=== PATIENT | female | born 1975 | race Caucasian/White ===

== ENCOUNTER 2020-09-03 09:25 | Inpatient (IN) | payer MEDICAID ==
[2020-09-03] MEDS ORDERED: Lactated Ringers 1,000 ML IV ONE (10:15)
[2020-09-03] MEDS ORDERED: Rocuronium 50 MG/5 ML Vial ONE (10:17)
[2020-09-03] MEDS ORDERED: Glycopyrrolate 0.2 MG/ML 5 ML MDV ONE (10:17)
[2020-09-03] MEDS ORDERED: Dexamethasone 4 MG/ML SDV ONE (10:17)
[2020-09-03] MEDS ORDERED: Ondansetron 4 MG/2 ML SDV ONE (10:17)
[2020-09-03] MEDS ORDERED: Propofol 200 MG/20 ML SDV ONE (10:17)
[2020-09-03] MEDS ORDERED: Succinylcholine 200 MG/10 ML MDV ONE (10:17)
[2020-09-03] MEDS ORDERED: fentaNYL 250 MCG/5 ML SDV ONE (10:17)
[2020-09-03] MEDS ORDERED: Neostigmine Methylsulfate 1 MG/ML 5 ML Syringe ONE (10:17)
[2020-09-03] MEDS: HYDROmorphone/Normal Saline 15 MG/30 ML PCA IV PRN (10:21)
[2020-09-03] MEDS ORDERED: Meropenem 500 MG SDV ONE (10:52)
[2020-09-03] MEDS ORDERED: Magnesium Sulfate 2.5 GM in Sodium Chloride 0.9% 100 ML IV SCH (11:00)
[2020-09-03] MEDS ORDERED: Ketamine 500 MG/5 ML MDV IV SCH (11:00)
[2020-09-03] MEDS ORDERED: Naloxone 0.4 MG/ML SDV IV PRN (11:00)
[2020-09-03] MEDS ORDERED: Ketamine 50 MG in Sodium Chloride 0.9% 49.5 ML IV SCH (11:00)
[2020-09-03] MEDS ORDERED: cefOXitin 2 GM in Sodium Chloride 0.9% 50 ML IV ONE (11:30)
[2020-09-03] MEDS ORDERED: Lactated Ringers 1,000 ML ONE (12:11)
[2020-09-03] MEDS ORDERED: Dextrose 5%-Lactated Ringers 1,000 ML IV SCH (12:15)
[2020-09-03] MEDS ORDERED: Bupivacaine 0.5% 50 ML MDV ONE (12:32)
[2020-09-03] MEDS ORDERED: Lidocaine 1% with EPINEPHrine 1:100,000 50 ML MDV ONE (12:32)
--- NOTE | 2020-09-03 12:39 | CR ---
CHEST: Portable 09/03/2020 11:05 AM CLINICAL HISTORY:NG tube placement COMPARISON:None FINDINGS: NG tube has been placed. The tip is in the fundus of the stomach just beyond the GE junction. Sidehole may be above the GE junction The heart size, pulmonary vascularity and hilar structures are normal. No infiltrate effusion or pneumothorax is seen. IMPRESSION: No acute cardiopulmonary process. NG tube should be advanced
[2020-09-03] MEDS ORDERED: hydrOXYzine HCL 100 MG/2 ML SDV IM ONE (13:38)
[2020-09-03] MEDS ORDERED: Labetalol 100 MG/20 ML MDV IVPUSH PRN (14:26)
[2020-09-03] MEDS: Dextrose 5%-Lactated Ringers 1,000 ML IV SCH (14:51)
[2020-09-03] MEDS ORDERED: Calcium Gluconate 10% 1 GM/10 ML SDV IVPUSH PRN (15:00)
[2020-09-03] MEDS ORDERED: diphenhydrAMINE 50 MG/ML SDV IVPUSH PRN (15:00)
[2020-09-03] MEDS ORDERED: hydrOXYzine HCL 100 MG/2 ML SDV IM PRN (15:00)
[2020-09-03] MEDS ORDERED: Ondansetron 4 MG/2 ML SDV IVPUSH PRN (15:00)
[2020-09-03] MEDS ORDERED: Pantoprazole 40 MG Vial IVPUSH SCH (15:00)
[2020-09-03] MEDS ORDERED: Acetaminophen 500 MG Tab PO PRN (15:00)
[2020-09-03] MEDS ORDERED: Metoclopramide 10 MG/2 ML SDV IVPUSH PRN (15:00)
[2020-09-03] MEDS: MVI, Adult with Vitamin K 10 ML, Thiamine 200 MG, Chromium/Copper/Mang/Selen/Zn 1 ML in... IV SCH ×4 (15:46)
[2020-09-03] MEDS: Gabapentin 400 MG Cap PO SCH ×2 (15:47→21:41)
[2020-09-03] MEDS: Acetaminophen 500 MG Tab PO SCH ×2 (15:48→23:52)
[2020-09-03] MEDS ORDERED: Scopolamine 1.5 MG Transdermal Patch TOP SCH (16:00)
[2020-09-03] MEDS: cefOXitin 2 GM in Sodium Chloride 0.9% 50 ML IV SCH ×2 (17:16→23:52)
[2020-09-03] MEDS: Celecoxib 200 MG Cap PO SCH (20:05)
[2020-09-03] MEDS: Topiramate 25 MG Tab PO SCH (20:05)
[2020-09-03] MEDS: Heparin Sodium 5,000 Units/ML Vial SUBCUT SCH (20:05)
[2020-09-03] MEDS: Amitriptyline 25 MG Tab PO SCH (20:06)
[2020-09-04] MEDS: Dextrose 5%-Lactated Ringers 1,000 ML IV SCH ×3 (00:02→23:41)
[2020-09-04] MEDS ORDERED: Iopamidol 612 MG/ML 50 ML SDV PO ONE (03:14)
[2020-09-04] MEDS: cefOXitin 2 GM in Sodium Chloride 0.9% 50 ML IV SCH ×3 (05:44→17:37)
[2020-09-04] MEDS ORDERED: Ondansetron 4 MG Tab.DIS PO PRN (07:15)
--- NOTE | 2020-09-04 08:10 | PN ---
DATE OF SERVICE: 09/04/2020 SUBJECTIVE: Vanessa is postoperative day 1. Pain has been controlled with the HELICOPTER REPAIRER. She has been up ambulating. She has not used her incentive spirometer yet. She reports no other concerns and has no other questions. REVIEW OF SYSTEMS: Remainder of review of systems negative for any pertinent positives and negatives. OBJECTIVE: GENERAL: Vanessa White is a pleasant 45-year-old female, alert and orientated. VITAL SIGNS: TPR at 0721 is 98, 91, 16. Blood pressure 104/65. HEENT: Negative. NECK: Supple. HEART: Regular rate and rhythm. LUNGS: Clear. ABDOMEN: Dressings dry and intact. Abdominal binder is on. EXTREMITIES: Without peripheral edema. ASSESSMENT: Exploratory laparotomy with lysis of adhesions. 1. Reduction of small bowel volvulus and closure of internal hernia. 2. Small bowel resection. 3. Secondary enteroenterostomy to re-establish small bowel Chung-en-Y anatomy. 4. Small bowel strictureplasty. 5. Tube decompression distal to Chung limb, small bowel. 6. Repair of incarcerated incisional hernia. 7. Placement of Interceed mesh. POSTOPERATIVE DIAGNOSES: 1. Small bowel obstruction secondary to focal volvulus, marked decompensation and dilation of the jejunojejunostomy. 2. Focal stricture, distal biliary pancreatic limb. 3. Incarcerated incisional hernia. Date of procedure 09/03/2020. Surgeon: Ashvin Rodriguez MD. PLAN: 1. Discontinue cardiac monitoring. 2. Decrease IV to 100 mL per hour. 3. Discontinue her [place] catheter. 4. Step 2 gastric bypass diet without cereasl. 5. Zofran ODT 4 mg every 4 hours p.r.n. nausea, vomiting. 6. Order written for;. a. Incentive spirometer to use 10 times every hour while awake. b. May shower. 7. Continue use of ambulation. 8. Communication order, may have coffee if severe caffeine headache. 9. We will evaluate p.r.n. or in a.m. Kassie Clark PA-C /[id number]
[2020-09-04] MEDS: Heparin Sodium 5,000 Units/ML Vial SUBCUT SCH ×2 (08:40→19:22)
[2020-09-04] MEDS: Acetaminophen 500 MG Tab PO SCH ×3 (08:42→23:25)
[2020-09-04] MEDS: Fluticasone Propionate Nasal Spray 16 GM Bottle NASBOTH SCH (08:43)
[2020-09-04] MEDS: Celecoxib 200 MG Cap PO SCH ×2 (08:43→20:00)
[2020-09-04] MEDS: Gabapentin 400 MG Cap PO SCH ×3 (08:44→20:00)
[2020-09-04] MEDS: SCOPOLAMINE PATCH CHECK TOP SCH (08:44)
[2020-09-04] MEDS: Topiramate 25 MG Tab PO SCH ×2 (08:45→20:01)
[2020-09-04] MEDS: Pantoprazole 40 MG Tab.CR PO SCH (08:50)
--- NOTE | 2020-09-04 09:03 | CR ---
UGI Limited HISTORY: Postbariatric surgery FINDINGS: Precontrast images show some generalized small bowel distention. There are surgical suture lines in the epigastric region and left the abdomen. Patient swallowed water-soluble contrast. Upright views of the abdomen show no evidence of extravasation or obstruction. IMPRESSION: Status post abdominal surgery No extravasation or obstruction seen upper GI. There is some small bowel distention which is seen on preoperative imaging.
[2020-09-04] MEDS: HYDROmorphone/Normal Saline 15 MG/30 ML PCA IV PRN (09:05)
[2020-09-04] MEDS: Cyclobenzaprine 10 MG Tab PO PRN ×2 (11:34→23:25)
[2020-09-04] MEDS: MVI, Adult with Vitamin K 10 ML, Thiamine 200 MG, Chromium/Copper/Mang/Selen/Zn 1 ML in... IV SCH ×4 (15:30)
[2020-09-04] MEDS: Tamsulosin 0.4 MG Cap.ER PO SCH ×2 (16:18→20:00)
[2020-09-04] MEDS: Amitriptyline 25 MG Tab PO SCH (20:00)
[2020-09-05] MEDS: Acetaminophen 500 MG Tab PO SCH ×2 (08:16→16:01)
[2020-09-05] MEDS: Pantoprazole 40 MG Tab.CR PO SCH (08:16)
[2020-09-05] MEDS: Heparin Sodium 5,000 Units/ML Vial SUBCUT SCH ×2 (08:17→20:51)
[2020-09-05] MEDS: Gabapentin 400 MG Cap PO SCH ×3 (08:22→20:51)
[2020-09-05] MEDS: Cyclobenzaprine 10 MG Tab PO PRN (08:25)
--- NOTE | 2020-09-05 08:40 | PN ---
DATE OF SERVICE: 09/05/2020 SUBJECTIVE: Vanessa was unable to void after her Oviedo catheter was removed, and her Oviedo catheter was put back in and she was started on Flomax. She has been up ambulating. She did start using her incentive spirometer. Pain has been controlled with MANAGER AUTOMOTIVE. Vital signs stable. Oral intake 730. Urine output is 1600. REVIEW OF SYSTEMS: Remainder of review of systems negative for any pertinent positives and negatives. OBJECTIVE: GENERAL: Vanessa White is a pleasant 45-year-old female. VITAL SIGNS: TPR is 97.5, 94, 16. Blood pressure is 97/64. HEENT: Negative. NECK: Supple. HEART: Regular rate and rhythm. LUNGS: Clear. ABDOMEN: Dressings dry and intact. Abdominal binder is on. EXTREMITIES: Without peripheral edema. ASSESSMENT: Exploratory laparotomy with lysis of adhesions. 1. Reduction of small bowel volvulus and closure of internal hernia. 2. Small bowel resection. 3. Secondary enterostomy to re-establish small bowel Chung-en-Y anatomy. 4. Small bowel strictureplasty. 5. Tube decompression distal to Chung limb, small bowel. 6. Repair of incarcerated incisional hernia. 7. Placement of Interceed mesh. POSTOPERATIVE DIAGNOSES: 1. Small bowel obstruction secondary to focal volvulus, marked decompensation and dilation of the jejunojejunostomy. 2. Focal stricture, ductal biliary pancreatic limb. 3. Incarcerated incisional hernia. Date of procedure 09/03/2020. Surgeon: Ashvin Rodriguez MD. PLAN: 1. Flomax 0.4 mg 1 time now. 2. Discontinue Oviedo catheter 2 hours after Flomax was given. 3. Discontinue MANAGER AUTOMOTIVE. 4. Discontinue continuous pulse ox. 5. Dilaudid 2 to 4 mg every 4 hours p.r.n. pain. 6. Milk of Magnesia 30 mL, 1 dose now. 7. Bisacodyl (Dulcolax) tabs 20 mg p.o. one time 1 hour after Milk of Magnesia. 8. Colace 100 mg p.o. b.i.d. 9. We will evaluate p.r.n. or in a.m. Kassie Clark PA-C /[id number]
[2020-09-05] MEDS ORDERED: Magnesium Hydroxide 400 MG/5 ML Susp 30 ML Cup PO ONE (09:00)
[2020-09-05] MEDS ORDERED: Cyanocobalamin (Vitamin B12) 1,000 MCG/ML SDV IM ONE (09:00)
[2020-09-05] MEDS ORDERED: Tamsulosin 0.4 MG Cap.ER PO ONE (09:00)
[2020-09-05] MEDS: Docusate Sodium 100 MG Cap PO SCH ×2 (09:39→20:51)
[2020-09-05] MEDS: Celecoxib 200 MG Cap PO SCH ×2 (09:41→20:51)
[2020-09-05] MEDS: Dextrose 5%-Lactated Ringers 1,000 ML IV SCH (09:42)
[2020-09-05] MEDS: Fluticasone Propionate Nasal Spray 16 GM Bottle NASBOTH SCH (09:46)
[2020-09-05] MEDS: SCOPOLAMINE PATCH CHECK TOP SCH (09:48)
[2020-09-05] MEDS: Topiramate 25 MG Tab PO SCH ×2 (09:49→20:51)
[2020-09-05] MEDS ORDERED: Bisacodyl 5 MG Tab PO ONE (10:00)
[2020-09-05] MEDS: HYDROmorphone 2 MG Tab PO PRN ×3 (10:38→19:23)
[2020-09-05] MEDS: Amitriptyline 25 MG Tab PO SCH (20:51)
[2020-09-05] MEDS: Tamsulosin 0.4 MG Cap.ER PO SCH (20:52)
[2020-09-06] MEDS: HYDROmorphone 2 MG Tab PO PRN ×5 (01:00→21:05)
[2020-09-06] MEDS: Acetaminophen 500 MG Tab PO SCH ×4 (01:00→23:19)
[2020-09-06] MEDS ORDERED: Bisacodyl 10 MG Supp RECTAL PRN (07:10)
[2020-09-06] MEDS: Pantoprazole 40 MG Tab.CR PO SCH (07:19)
[2020-09-06] MEDS: Heparin Sodium 5,000 Units/ML Vial SUBCUT SCH ×2 (07:21→21:04)
--- NOTE | 2020-09-06 08:11 | PN ---
DATE OF SERVICE: 09/06/2020 SUBJECTIVE: Her IV infiltrated. She was changed to oral pain medication and she is having no difficulty with Dilaudid p.o. She currently is not passing any flatus. Has been up ambulating. Using her incentive spirometer. Oral intake 2680. Urine output, a total of 3000. REVIEW OF SYSTEMS: Remainder of review of systems negative for any pertinent positives and negatives. OBJECTIVE: GENERAL: Vanessa White is a 45-year-old female. She is alert and orientated. Color pale. VITAL SIGNS: TPR is 97.9, 88, 18. Blood pressure 119/68. HEENT: Negative. NECK: Supple. HEART: Regular rate and rhythm. LUNGS: Clear. ABDOMEN: Dressings dry and intact. Abdominal binder is on. EXTREMITIES: Without peripheral edema. ASSESSMENT: Exploratory laparotomy with lysis of adhesions. 1. Reduction of small bowel volvulus and closure of internal hernia. 2. Small bowel resection. 3. Secondary enterostomy to re-establish small bowel Chung-en-Y anatomy. 4. Small bowel strictureplasty. 5. Tube decompression distal Chung limb, small bowel. 6. Repair of incarcerated incisional hernia. 7. Placement of Interceed mesh. POSTOPERATIVE DIAGNOSES: 1. Small bowel obstruction secondary to focal volvulus, marked decompensation and dilation of the jejunojejunostomy. 2. Focal stricture, ductal biliary pancreatic limb. 3. Incarcerated incisional hernia. Date of procedure 09/03/2020. Surgeon: Ashvin Rodriguez MD. PLAN: 1. Dulcolax 10 mg p.o. b.i.d. until bowel movement. 2. Milk of magnesia 30 mL b.i.d. scheduled until bowel movement. 3. Step 3 gastric bypass diet. 4. Dulcolax suppositories p.r.n. b.i.d. constipation. 5. Continue ambulation in the kye. 6. We will evaluate p.r.n. or in a.m. Kassie Clark PA-C /[id number]
[2020-09-06] MEDS: Magnesium Hydroxide 400 MG/5 ML Susp 30 ML Cup PO SCH ×2 (09:01→21:05)
[2020-09-06] MEDS: Bisacodyl 5 MG Tab PO SCH ×2 (09:02→21:04)
[2020-09-06] MEDS: Docusate Sodium 100 MG Cap PO SCH ×2 (09:03→21:03)
[2020-09-06] MEDS: Celecoxib 200 MG Cap PO SCH ×2 (09:03→21:04)
[2020-09-06] MEDS: Gabapentin 400 MG Cap PO SCH ×3 (09:03→21:04)
[2020-09-06] MEDS: Fluticasone Propionate Nasal Spray 16 GM Bottle NASBOTH SCH (09:04)
[2020-09-06] MEDS: Topiramate 25 MG Tab PO SCH ×2 (09:04→21:04)
[2020-09-06] MEDS: Cyclobenzaprine 10 MG Tab PO PRN (14:50)
[2020-09-06] MEDS: Tamsulosin 0.4 MG Cap.ER PO SCH (21:04)
[2020-09-06] MEDS: Amitriptyline 25 MG Tab PO SCH (21:04)
[2020-09-07] MEDS: HYDROmorphone 2 MG Tab PO PRN ×2 (04:14→11:38)
[2020-09-07] MEDS: Pantoprazole 40 MG Tab.CR PO SCH (07:24)
[2020-09-07] MEDS: Heparin Sodium 5,000 Units/ML Vial SUBCUT SCH (07:25)
[2020-09-07] MEDS: Acetaminophen 500 MG Tab PO SCH (07:25)
[2020-09-07] MEDS: Docusate Sodium 100 MG Cap PO SCH (09:35)
[2020-09-07] MEDS: Celecoxib 200 MG Cap PO SCH (09:35)
[2020-09-07] MEDS: Gabapentin 400 MG Cap PO SCH (09:36)
[2020-09-07] MEDS: Fluticasone Propionate Nasal Spray 16 GM Bottle NASBOTH SCH (09:36)
[2020-09-07] MEDS: Magnesium Hydroxide 400 MG/5 ML Susp 30 ML Cup PO SCH (09:36)
[2020-09-07] MEDS: Bisacodyl 5 MG Tab PO SCH (09:36)
[2020-09-07] MEDS: Topiramate 25 MG Tab PO SCH (09:37)
[2020-09-07 10:44] VITALS: BP 122/74; PULSE 81
--- NOTE | 2020-09-07 15:08 | DISCH ---
ADMISSION DIAGNOSES: Abdominal pain, status post Chung-en-Y gastric bypass surgery, unspecified surgical malabsorption, B12 deficiency, vitamin D deficiency. DISCHARGE DIAGNOSES: Exploratory laparotomy with lysis of adhesions. 1. Reduction of small bowel volvulus and closure of internal hernia. 2. Small bowel resection. 3. Secondary enterostomy to re-establish small bowel Chung-en-Y anatomy. 4. Small bowel strictureplasty. 5. Tube deep compression, distal Chung limb, small bowel. 6. Repair of incarcerated incisional hernia. 7. Placement of Interceed mesh. POSTOPERATIVE DIAGNOSES: 1. Small bowel obstruction secondary to focal volvulus, marked decompensation, and dilation of the jejunojejunostomy. 2. Focal stricture ductal biliary pancreatic limb. 3. Incarcerated incisional hernia. Date of procedure: 09/03/2020. Surgeon: Ashvin Rodriguez MD HISTORY: Vanessa White is a 45-year-old female who was transferred by ambulance from [facility] for a partial small bowel obstruction. After preoperative evaluation and discussion of possible risks and possible complications, she wished to proceed with surgical procedure. HOSPITAL SURGERY: Vanessa had her surgery on 09/03/2020. She had no operative complications. On postop day 1, her Oviedo was discontinued. She continued with ice chips. On postop day 2, her Oviedo catheter was discontinued, but unfortunately she had to have it replaced and was started on Flomax. Once the Flomax was started, Oviedo was removed and she was urinating on her own. On postop day 3, she started bowel stimulation, was up ambulating, step 3 gastric bypass diet, oral pain medication, and she was able to be discharged to home on 09/07/2020. PHYSICAL EXAMINATION: GENERAL: Vanessa White is a 45-year-old female. VITAL SIGNS: Height is 5 feet 2.99 inches, weight is 182 pounds. TPR is 97.2, 89, 16, blood pressure 127/77. HEENT: Negative. NECK: Supple. HEART: Regular rate and rhythm. LUNGS: Clear. ABDOMEN: Aquacel dressings on. Dry and intact. Abdominal binder is on. EXTREMITIES: Without peripheral edema. DISPOSITION: Discharged to home. CONDITION: Stable and improving. FOLLOWUP APPOINTMENT: Kassie Clark PA-C, at [facility], 09/17/2020 at 10 a.m. NEW PRESCRIPTION: 1. Celebrex 200 mg p.o. b.i.d., #28. 2. Dilaudid 2 mg every 4 hours p.r.n. pain, #42. 3. Flexeril 10 mg q.8 hours p.r.n. muscle spasms, #30. 4. MiraLAX 119 g to take 1 time when she gets home. 5. To resume home medications, vitamins, and supplements that she took prior to hospitalization. 6. Discontinue ibuprofen. DIET: Step 3 gastric bypass diet. Drink 8 to 10 glasses of water a day. ACTIVITY: No lifting greater than 10 pounds for 6 weeks. Other activity: Walk at least 6 times daily inside your home. Driving: Do not drive for 1 week or within 6 to 8 hours of pain medication. Shower/bathing: May shower. DISCHARGE INSTRUCTIONS: Notify provider if any fever, increased pain, nausea, vomiting. Keep site clean and dry. Wound incision care: Take off Aquacel dressing in 3 days. Use incentive spirometer 10 times every hour while awake. /[id number]
--- NOTE | 2020-09-11 09:11 | OR ---
DATE OF PROCEDURE: 09/03/2020 SURGEON: Ashvin Rodriguez MD PREOPERATIVE DIAGNOSIS: Small bowel obstruction. POSTOPERATIVE DIAGNOSES: 1. Small bowel obstruction associated with focal small bowel volvulus and marked decompensation and dilation of jejunojejunostomy. 2. Focal stricture of distal biliopancreatic limb. 3. Incarcerated incisional hernia. OPERATIVE PROCEDURES: Exploratory laparotomy with lysis of adhesions and: 1. Reduction of small bowel volvulus and closure of internal hernia (48470). 2. Small bowel resection (50055). 3. Secondary enteroenterostomy to reestablish the small bowel Chung-en-Y anatomy (11191). 4. Small bowel stricturoplasty (43888). 5. Tube decompression of distal Chung limb of small bowel (89428). 6. Repair of incarcerated incisional hernia (79464). 7. Placement of Interceed mesh to limit recurrent adhesion formation between pelvic and abdominal wall and underlying viscera (65653). ANESTHESIA: General. GAS STATION CASHIER: Kassie Clark PA-C INDICATIONS FOR PROCEDURE: This is a 45-year-old status post previous Chung-en-Y gastric bypass, presenting with a picture of small-bowel obstruction. She presented originally to the hospital in [place], [place], and subsequently transferred here given her bariatric surgery status. Plan is to proceed with exploratory laparotomy with lysis of adhesions, release of small bowel obstruction, and possible bowel resection as indicated. Potential risks including bleeding, infection, leaks from various GI tract closures, possibility of the problems with bowel obstruction recurring over time were all reviewed, and the patient wishes to proceed. DETAILS OF PROCEDURE: The patient was taken to the operating room, and after general endotracheal anesthesia was induced, a Oviedo catheter was inserted, and the abdomen prepped and draped. Previous midline incision was made from the umbilicus roughly a handsbreadth toward the xiphoid and carried down through the full-thickness abdominal wall. Upon entering the peritoneal cavity, some scattered adhesions were taken down. Initial finding was that of a small bowel volvulus. This was related to rotation of significant portion of the jejunojejunostomy and associated Chung limb and biliopancreatic limbs underneath the leaves of the mesentery at that level. This was compounded by some adhesions holding the bowel in that position. After adhesions were lysed, this area was reduced. The patient was noted to have a marked decompensation/dilation of the bowel involving the jejunojejunostomy distention of the Chung limb proximal to that anastomosis. The 3 components of that anastomosis were then divided with KAVITA chito as was the underlying mesentery and specimen delivered from the field. To decompress the Chung limb, small enterotomy was made in the remaining end of the Chung limb and the tube placed thus removing a large amount of fluid from that area. The patient was noted to also then have an area of stricturing involving the biliopancreatic limb. This was initially treated by means of flipping the bowel over itself creating an enterotomy on the antimesenteric border and an internal firing of the KAVITA 60 mm stapler was then placed and the common opening then closed transversely with the KAVITA stapler as well. The angles of anastomosis were reinforced with some 3-0 Vicryl stitch. There was no mesenteric defect in this case to close. The GI tract continuity was then reestablished initially with an anastomosis between what had been the end of the biliopancreatic limb to the proximal end of the common limb. This was accomplished with internal firing of the 60 mm KAVITA chito followed by 30 mm internal firing and common opening then closed transversely with KAVITA chito as well. Angles of anastomosis and mesenteric defect were then approximated with 3-0 Vicryl stitch soaked stitch for the mesenteric defect. The Chung-en-Y anatomy was then reconstructed with anastomosis between the end of the Chung limb to the bowel roughly 20 cm distal to the first GI tract anastomosis with same sequence of chito and mesenteric defect closures. At this point, no further problems were noted intra-abdominally. During the course of the entrance of the abdomen, the patient was noted to have a small incisional hernia located in the upper end of the previous incision and was then excised and reduced. Abdomen was irrigated with antibiotic-containing saline solution. Interceed mesh was then placed underneath the incision from there down toward the pelvis to limit recurrent adhesion formation between the abdominal wall, pelvic wall, and underlying viscera. The midline fascia was then approximated with a #2 Vicryl stitch, subcutaneous tissue with 2 layers of 3-0 and 4-0 Vicryl stitch, and the skin with chito. Prior to closure, bilateral transversus abdominis plane blocks were placed and the patient was taken to the recovery room in satisfactory condition. Physician engineering assistant, Kassie Clark, played an essential role in assisting in this case, helping to position the patient, retract structures as needed, as well as suturing and cutting sutures when indicated. Her presence improved patient safety and decreased operative time. Ashvin Rodriguez MD /[id number]
== END 2020-09-07 12:50 | disposition home or self-care (01) | DRG 330 ==
LOC: JP.MS 09:25
PROVIDERS: ADMIT Surgery; ATTEND Surgery
PROC: 0DT80ZZ Resection of Small Intestine, Open Approach (ICD-10-PCS; principal; 2020-09-03)
PROC: 0DS80ZZ Reposition Small Intestine, Open Approach (ICD-10-PCS; 2020-09-03)
PROC: 0WUF0JZ Supplement Abdominal Wall with Synthetic Substitute, Open Approach (ICD-10-PCS; 2020-09-03)
PROC: 0DN80ZZ Release Small Intestine, Open Approach (ICD-10-PCS; 2020-09-03)
DX: K56.2 Volvulus (principal); K43.0 Incisional hernia with obstruction, without gangrene; E55.9 Vitamin D deficiency, unspecified; E53.8 Deficiency of other specified B group vitamins; Z20.828 Contact with and (suspected) exposure to other viral communicable diseases
CPT/HCPCS: 36415; 71045; 71045-26; 74240; 74240-26; 80053; 82728; 83735; 84100; 85025; 88302; 88307; 94762; A9270-GY; C9113; J0171; J0330; J0694; J1100; J1170; J1644; J2185; J2405; J2704; J2710; J2795; J3010; J3410; J3411; J3420; J3475; J3490; J7050; J7120; J7121; Q9967; U0002

== ENCOUNTER 2021-02-20 22:05 | Inpatient (IN) | payer BC, MEDICAID ==
--- NOTE | 2021-02-20 22:36 | EDM.PDOC ---
ED HPI GENERAL MEDICAL PROBLEM - General Chief Complaint: Abdominal Pain Stated Complaint: STOMACH PAINS Time Seen by Provider: 02/20/21 22:29 Source of Information: Reports: Patient History Limitations: Reports: No Limitations - History of Present Illness INITIAL COMMENTS - FREE TEXT/NARRATIVE: Vanessa is a 45-year-old female presenting to the emergency room with abdominal pain. Patient is status post Chung-en-Y performed approximately 4 years ago. She has a previous history of a bowel obstruction and underwent an exploratory laparotomy for lysis of adhesions 3 or 4 months ago. She states that she feels the same way now. She states that she has not had a bowel movement in for 5 days. She has had no change in appetite. Her abdomen has become much more distended. She has had no fever or chills. Also noted is she is having increasing bruisability on the arms. This is new for her. Abdomen Pain Score (Numeric/FACES): 8 - Related Data Allergies Allergy/AdvReac Type Severity Reaction Status Date / Time No Known Allergies Allergy Verified 01/22/16 13:05 Home Meds: Home Meds Cyclobenzaprine [Flexeril] 10 mg PO TID 01/19/15 [History] Gabapentin [Neurontin] 1,200 mg PO TID 01/19/15 [History] Cholecalciferol (Vitamin D3) [Vitamin D] 1,000 unit PO DAILY 01/23/15 [History] Cyanocobalamin (Vitamin B-12) [Vitamin B-12] 1,000 mcg PO DAILY 01/23/15 [History] Ped Multivit 43/Iron Fumarate [Flintstones Complete Chew Tab] 1 tab PO BID 01/23/15 [History] Vitamin B Complex 1 each PO DAILY 01/23/15 [History] Escitalopram [Lexapro] 20 mg PO BEDTIME 09/03/20 [History] polyethylene glycoL 3350 [MiraLAX] 119 gm PO ONETIME #119 gm 09/07/20 [Rx] Past Medical History HEENT History: Reports: None Respiratory History: Reports: Sleep Apnea Gastrointestinal History: Reports: Bowel Obstruction STITCHER STANDARD MACHINE History: Reports: Musculoskeletal History: Reports: Back Pain, Chronic Neurological History: Reports: Migraines Psychiatric History: Reports: Anxiety Endocrine/Metabolic History: Reports: Obesity/BMI 30+ - Infectious Disease History Infectious Disease History: Reports: Chicken Pox - Past Surgical History HEENT Surgical History: Reports: Tonsillectomy GI Surgical History: Reports: Bariatric Procedure, Esophageal Dilatation, Hernia, Abdominal, Lysis of Adhesions Neurological Surgical History: Reports: Spinal Fusion Other Neurological Surgeries/Procedures: L4-S1 Social & Family History - Family History Cardiac: Reports: High Cholesterol, Hypertension Neurological: Reports: CVA - Caffeine Use Caffeine Use: Reports: Coffee, Soda Other Caffeine Use: 3 cans a day soda, 2 cups of coffee a day ED ROS GENERAL - Review of Systems Review Of Systems: See Below Constitutional: Reports: No Symptoms HEENT: Reports: No Symptoms Respiratory: Reports: No Symptoms Cardiovascular: Reports: No Symptoms Endocrine: Reports: No Symptoms GI/Abdominal: Reports: Abdominal Pain (Generalized), Diarrhea (Watery stools), Distension, Other (History of Chung-en-Y 4 years ago) : Reports: No Symptoms Musculoskeletal: Reports: No Symptoms Skin: Reports: Bruising (Easy bruising) Neurological: Reports: No Symptoms Psychiatric: Reports: No Symptoms Hematologic/Lymphatic: Reports: Easy Bruising Immunologic: Reports: No Symptoms ED EXAM, GI/ABD - Physical Exam Exam: See Below Exam Limited By: No Limitations General Appearance: Alert, Anxious, Mild Distress Eyes: Bilateral: EOMI Throat/Mouth: Normal Inspection Head: Atraumatic, Normocephalic Neck: Normal Inspection, Supple Respiratory/Chest: No Respiratory Distress, Lungs Clear, Normal Breath Sounds Cardiovascular: Normal Peripheral Pulses, Regular Rate, Rhythm, No Murmur GI/Abdominal Exam: Distended (Distended with tympany to percussion throughout the abdomen), Tender, Abnormal Bowel Sounds (Diminished bowel sounds). No: Rebound Neurological: Alert, Oriented, Normal Cognition, No Motor/Sensory Deficits Psychiatric: Normal Affect, Normal Mood Skin Exam: Warm, Ecchymosis (Multiple bruises on both arms.), Pallor Lymphatic: No Adenopathy Course - Vital Signs Last Recorded V/S: Last Vital Signs Temp 36.6 C 02/20/21 22:27 Pulse 86 02/20/21 22:27 Resp 16 02/20/21 22:27 BP 129/83 02/20/21 22:27 Pulse Ox 100 02/20/21 22:27 - Orders/Labs/Meds Orders: Active Orders 24 hr Category Date Time Status Iopamidol [Isovue-300 (61%)] Med 02/20/21 22:45 Active 100 ml IV . DIRECTED Sodium Chloride 0.9% [Normal Saline] 80 ml Med 02/20/21 22:45 Active IV ASDIRECTED Sodium Chloride 0.9% [Saline Flush] Med 02/20/21 22:38 Active 10 ml FLUSH ASDIRECTED PRN Saline Lock Insert [OM.PC] Routine Oth 02/20/21 22:38 Ordered Medication Orders Sodium Chloride (Normal Saline) 80 mls @ 3 mls/sec IV ASDIRECTED EPHRAIM Last Admin: 02/20/21 22:57 Dose: 3 mls/sec Documented by: LI Iopamidol (Iopamidol 612 Mg/Ml 100 Ml Bottle) 100 ml IV . DIRECTED EPHRAIM Last Admin: 02/20/21 22:57 Dose: 100 ml Documented by: LI Sodium Chloride (Sodium Chloride 0.9% 10 Ml Syringe) 10 ml FLUSH ASDIRECTED PRN PRN Reason: Keep Vein Open Last Admin: 02/20/21 22:58 Dose: 10 ml Documented by: Admin: 02/20/21 22:57 Dose: 10 ml Documented by: LI Labs: Laboratory Tests 02/20/21 02/20/21 02/20/21 Range/Units 22:50 22:50 22:50 WBC 7.6 (4.5-11.0) K/uL RBC 3.82 (3.30-5.50) M/uL Hgb 11.7 L (12.0-15.0) g/dL Hct 35.9 L (36.0-48.0) % MCV 94 (80-98) fL MCH 31 (27-31) pg MCHC 33 (32-36) % Plt Count 311 (150-400) K/uL Neut % (Auto) 63 (36-66) % Lymph % (Auto) 25 (24-44) % [place] % (Auto) 8 H (2-6) % Eos % (Auto) 4 (2-4) % Baso % (Auto) 0 (0-1) % PT 10.7 (9.5-12.0) sec INR 0.98 (0.80-1.20) APTT 26.6 L (27.0-36.0) sec Sodium 146 (140-148) mmol/L Potassium 3.2 L (3.6-5.2) mmol/L Chloride 110 H (100-108) mmol/L Carbon Dioxide 25 (21-32) mmol/L Anion Gap 14.2 H (5.0-14.0) mmol/L BUN 9 D (7-18) mg/dL Creatinine 0.5 L (0.6-1.0) mg/dL Est Cr Clr Drug Dosing 117.54 mL/min Estimated GFR (MDRD) > 60 (>60) Glucose 85 (74-106) mg/dL Calcium 7.5 L (8.5-10.1) mg/dL Total Bilirubin 0.2 (0.2-1.0) mg/dL AST 13 L (15-37) U/L ALT 21 (12-78) U/L Alkaline Phosphatase 68 (46-116) U/L Total Protein 5.5 L (6.4-8.2) g/dL Albumin 3.0 L (3.4-5.0) g/dL Globulin 2.5 (2.3-3.5) g/dL Albumin/Globulin Ratio 1.2 (1.2-2.2) Lipase 51 L (73-393) U/L Meds: Medications Generic Name Dose Route Start Last Admin Trade Name Freq PRN Reason Stop Dose Admin Sodium Chloride 80 mls @ 3 mls/sec 02/20/21 22:45 02/20/21 22:57 Normal Saline IV 3 mls/sec ASDIRECTED EPHRAIM Administration Iopamidol 100 ml 02/20/21 22:45 02/20/21 22:57 Iopamidol 612 Mg/Ml 100 Ml Bottle IV 100 ml . DIRECTED EPHRAIM Administration Sodium Chloride 10 ml 02/20/21 22:38 02/20/21 22:58 Sodium Chloride 0.9% 10 Ml Syringe FLUSH 10 ml ASDIRECTED PRN Administration Keep Vein Open - Radiology Interpretation Free Text/Narrative:: Viewed the CT of the abdomen and pelvis with contrast showing diffuse colonic distention with flatus without evidence for obstruction of either the small bowel or colon. This was consistent with a colonic ileus. - Re-Assessments/Exams Free Text/Narrative Re-Assessment/Exam: 02/20/21 23:52 I reviewed the results of the CT of the abdomen and pelvis. There is no evidence for small bowel obstruction, however, the patient does have a significant distention of the colon without obvious obstruction. This is consistent with a colonic ileus. I discussed the case with Dr. Fitz Rodriguez who recommended the patient get a saline laxative enema, admit the patient for comfort and he will see her in the morning for further evaluation. I discussed the case with Xenia Martinez CNP who will arrange for the admission. Departure - Departure Time of Disposition: 23:59 Disposition: Admitted As Inpatient 66 Clinical Impression: Abdominal distension (gaseous), Adynamic ileus - Discharge Information Referrals: PCP,None [Primary Care Provider] - Forms: ED Department Discharge Sepsis Event Note (ED) - Evaluation Sepsis Screening Result: No Definite Risk - Focused Exam Vital Signs: Vital Signs Temp Pulse Resp BP Pulse Ox 02/20/21 22:27 36.6 C 86 16 129/83 100 02/20/21 22:23 36.6 C 86 16 129/83 100 - My Orders Last 24 Hours: My Active Orders 02/20/21 22:38 Sodium Chloride 0.9% [Saline Flush] 10 ml FLUSH ASDIRECTED PRN Saline Lock Insert [OM.PC] Routine 02/20/21 22:45 Iopamidol [Isovue-300 (61%)] 100 ml IV . DIRECTED Sodium Chloride 0.9% [Normal Saline] 80 ml IV ASDIRECTED - Assessment/Plan Last 24 Hours: My Active Orders 02/20/21 22:38 Sodium Chloride 0.9% [Saline Flush] 10 ml FLUSH ASDIRECTED PRN Saline Lock Insert [OM.PC] Routine 02/20/21 22:45 Iopamidol [Isovue-300 (61%)] 100 ml IV . DIRECTED Sodium Chloride 0.9% [Normal Saline] 80 ml IV ASDIRECTED
[2021-02-20] MEDS ORDERED: Iopamidol 612 MG/ML 100 ML Bottle IV SCH (22:45)
[2021-02-20] MEDS ORDERED: Sodium Chloride 0.9% 80 ML IV SCH (22:45)
[2021-02-20] MEDS: Sodium Chloride 0.9% 10 ML Syringe FLUSH PRN ×2 (22:57→22:58)
--- NOTE | 2021-02-20 23:41 | CRLCT ---
INDICATION: Abdominal pain and distension. COMPARISON: 09/03/2020 TECHNIQUE: CT examination of the abdomen and pelvis was performed with the uneventful intravenous administration of 100 cc of Isovue-300 while 3 mm thick axial sections were obtained from the lung bases through the pubic symphysis. Oral contrast was not administered. Please note that all CT scans at this facility use dose modulation, iterative reconstruction, and/or weight-based dosing when appropriate to reduce radiation dose to as low as reasonably achievable. FINDINGS: There is new moderate gaseous distention of the colon extending from the cecum through the inferior descending colon, sparing the proximal sigmoid colon, but with mild gaseous distention of the nondependent mid sigmoid colon. The findings are not suggestive of distal colonic obstruction and are more likely from a colonic ileus. The small bowel is nondilated, with resolution of the previously seen small bowel obstruction. There is a mild amount of fluid throughout the bowel with moderate mucosal thickening suggesting enteritis. Multiple lines of chito are seen in the left lower quadrant of the abdomen and upper pelvis from multiple small bowel anastomoses, new compared to the previous study. There is no sign of any stricture in this region. In the abdomen, the liver, spleen, pancreas, and adrenals are normal in appearance. The kidneys are normal in appearance. The gallbladder is normal in appearance. The abdominal aorta is normal in caliber with no sign of dilatation. There is no sign of retroperitoneal mass or adenopathy. The stomach is again seen to have multiple lines of chito from gastric bypass. In the pelvis, the appendix is nonvisualized appendix There is a new cystic region in the left adnexa measuring 3.7 x 3.2 centimeters which may be an ovarian cyst. What appears to be the left ovary is nearby measuring 2.8 x 2.2 centimeters. The right adnexal region is normal in appearance. The uterus appears to be absent. The urinary bladder is normal in appearance. There is no sign of pelvic or inguinal mass or adenopathy. There is no sign of free air or free fluid in the abdomen or pelvis. The lung bases are clear. Again seen are changes of fusion from L3 through L5 with bilateral intrapedicular screws and vertical connecting rods. There is no change in grade 1 anterior subluxation of L4 on L5. Again seen is the hypoplastic L5-S1 disc space. There is no change in mild scoliosis of the upper lumbar spine convex towards the right. IMPRESSION: New moderate gaseous distention of the colon, without distal colonic obstruction, most consistent with a colonic ileus. Resolution of previously seen small bowel obstruction. There is a mild amount of fluid throughout the small bowel with moderate mucosal thickening, is suggesting enteritis. CT of the abdomen shows stable changes of gastric bypass surgery. There are multiple new small bowel anastomoses in the left lower abdomen and upper pelvis. CT of the pelvis shows a new 3.7 x 3.2 centimeter cystic structure in the left adnexal region, probably an ovarian cyst. Please note that all CT scans at this facility use dose modulation, iterative reconstruction, and/or weight-based dosing when appropriate to reduce radiation dose to as low as reasonably achievable. Dictated by Osvaldo Shin MD @ Feb 20 2021 11:21PM Signed by Dr. Osvaldo Shin @ Feb 20 2021 11:41PM
--- NOTE | 2021-02-21 00:49 | PCM.HP.2 ---
H&P History of Present Illness - General Date of Service: 02/20/21 Admit Problem/Dx: Admission Diagnosis/Problem Admission Diagnosis/Problem Ileus Source of Information: Patient History Limitations: Reports: No Limitations - History of Present Illness Initial Comments - Free Text/Narative: chief complaint: abdominal pain x 3 days Vanessa is a 45-year-old female presenting to the emergency room with abdominal pain. Patient is status post Chung-en-Y performed 2013. She has a previous history of a bowel obstruction and underwent an exploratory laparotomy for lysis of adhesions 3 or 4 months ago. She states that she feels the same way now. She states that she has not had a bowel movement in for 5 days. She has had no change in appetite. Her abdomen has become much more distended. She has had no fever or chills. Also noted is she is having increasing bruisability on the arms. This is new for her. Onset of Symptoms: Reports: Gradual Symptom Onset Date: 02/18/21 Duration of Symptoms: Reports: Constant, Getting Worse Location: Reports: Abdomen Quality: Reports: Sharp (constant) Severity: Severe Improves with: Reports: Rest Worsens with: Reports: Movement Associated Symptoms: Reports: Fever/Chills (chills without fever), Loss of A ppetite, Nausea/Vomiting (nausea without vomiting) Abdomen Pain Score (Numeric/FACES): 8 - Related Data Allergies/Adverse Reactions: Allergies Allergy/AdvReac Type Severity Reaction Status Date / Time No Known Allergies Allergy Verified 01/22/16 13:05 Home Medications: Home Meds Cyclobenzaprine [Flexeril] 10 mg PO TID 01/19/15 [History] Gabapentin [Neurontin] 1,200 mg PO TID 01/19/15 [History] Cholecalciferol (Vitamin D3) [Vitamin D] 1,000 unit PO DAILY 01/23/15 [History] Cyanocobalamin (Vitamin B-12) [Vitamin B-12] 1,000 mcg PO DAILY 01/23/15 [History] Ped Multivit 43/Iron Fumarate [Flintstones Complete Chew Tab] 1 tab PO BID 01/23/15 [History] Vitamin B Complex 1 each PO DAILY 01/23/15 [History] Escitalopram [Lexapro] 20 mg PO BEDTIME 09/03/20 [History] polyethylene glycoL 3350 [MiraLAX] 119 gm PO ONETIME #119 gm 09/07/20 [Rx] Past Medical History HEENT History: Reports: None Respiratory History: Reports: Sleep Apnea Gastrointestinal History: Reports: Bowel Obstruction SAL[employer] History: Reports: Musculoskeletal History: Reports: Back Pain, Chronic Neurological History: Reports: Migraines Psychiatric History: Reports: Anxiety Endocrine/Metabolic History: Reports: Obesity/BMI 30+ - Infectious Disease History Infectious Disease History: Reports: Chicken Pox - Past Surgical History HEENT Surgical History: Reports: Tonsillectomy GI Surgical History: Reports: Bariatric Procedure, Esophageal Dilatation, Hernia, Abdominal, Lysis of Adhesions Neurological Surgical History: Reports: Spinal Fusion Other Neurological Surgeries/Procedures: L4-S1 Social & Family History - Family History Cardiac: Reports: High Cholesterol, Hypertension Neurological: Reports: CVA - Tobacco Use Tobacco Use Status *Q: Current Every Day Tobacco User Years of Tobacco use: 2 Packs/Tins Daily: 0.5 - Caffeine Use Caffeine Use: Reports: Coffee, Soda, Tea Other Caffeine Use: 3 cans a day soda, 2 cups of coffee a day - Recreational Drug Use Recreational Drug Use: No - Living Situation & Occupation Living situation: Reports: Single, Alone Occupation: Employed (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 lives alone in [place], [place]. has two adult children.) H&P Review of Systems - Review of Systems: Review Of Systems: See Below General: Reports: No Symptoms, Chills, Decreased Appetite, Other (abdominal pain for the past 3 days) HEENT: Reports: Glasses Pulmonary: Reports: No Symptoms, Other (smokes 7 cigarettes per day) Cardiovascular: Reports: No Symptoms Gastrointestinal: Reports: Abdominal Pain, Diarrhea (watery ), Decreased Appetite, Distension, Nausea Genitourinary: Reports: No Symptoms Musculoskeletal: Reports: No Symptoms Skin: Reports: Rash (dermatitis of hands from exposure to fluids at work.) Psychiatric: Reports: No Symptoms Neurological: Reports: No Symptoms Hematologic/Lymphatic: Reports: No Symptoms Immunologic: Reports: No Symptoms Exam - Exam Exam: See Below - Vital Signs Vital Signs: Last Vital Signs Temp 97.8 F 02/20/21 22:27 Pulse 86 02/20/21 22:27 Resp 16 02/20/21 22:27 BP 129/83 02/20/21 22:27 Pulse Ox 100 02/20/21 22:27 Weight: 154 lb 5.177 oz - Exam Quality Assessment: DVT Prophylaxis (SCD) General: Alert, Oriented, Cooperative, Mild Distress HEENT: PERRLA, Hearing Intact, Mucosa Moist & [place], Nares Patent, Normal Nasal Septum, Posterior Pharynx Clear, Conjunctiva Clear, EOMI, EACs Clear, TMs Clear Neck: Supple, Trachea Midline, 2 Lungs: Clear to Auscultation, Normal Respiratory Effort Cardiovascular: Regular Rate, Regular Rhythm GI/Abdominal Exam: Distended, Tender, Abnormal Bowel Sounds (absent bowel sounds) (Female) Exam: Deferred Rectal (Female) Exam: Deferred Back Exam: Normal Inspection, Full Range of Motion, NT Extremities: Normal Inspection, Normal Range of Motion, Non-Tender, No Pedal Edema, Normal Capillary Refill, Other (rash noted at wrist) Skin: Warm, Dry, Intact, Rash (noted at bilateral wrist- red, raised, pruritic, without signs of infection) Neurological: Cranial Nerves Intact, Reflexes Equal Bilateral Neuro Extensive - Mental Status: Alert, Oriented x3, Normal Mood/Affect, Normal Cognition Neuro Extensive - Motor, Sensory, Reflexes: CN II-XII Intact, Normal Gait, Normal Reflexes Psychiatric: Alert, Normal Affect, Normal Mood - Patient Data Lab Results Last 24 hrs: Laboratory Results - last 24 hr 02/20/21 02/20/21 02/20/21 Range/Units 22:50 22:50 22:50 WBC 7.6 (4.5-11.0) K/uL RBC 3.82 (3.30-5.50) M/uL Hgb 11.7 L (12.0-15.0) g/dL Hct 35.9 L (36.0-48.0) % MCV 94 (80-98) fL MCH 31 (27-31) pg MCHC 33 (32-36) % Plt Count 311 (150-400) K/uL Neut % (Auto) 63 (36-66) % Lymph % (Auto) 25 (24-44) % [place] % (Auto) 8 H (2-6) % Eos % (Auto) 4 (2-4) % Baso % (Auto) 0 (0-1) % PT 10.7 (9.5-12.0) sec INR 0.98 (0.80-1.20) APTT 26.6 L (27.0-36.0) sec Sodium 146 (140-148) mmol/L Potassium 3.2 L (3.6-5.2) mmol/L Chloride 110 H (100-108) mmol/L Carbon Dioxide 25 (21-32) mmol/L Anion Gap 14.2 H (5.0-14.0) mmol/L BUN 9 D (7-18) mg/dL Creatinine 0.5 L (0.6-1.0) mg/dL Est Cr Clr Drug Dosing 117.54 mL/min Estimated GFR (MDRD) > 60 (>60) Glucose 85 (74-106) mg/dL Calcium 7.5 L (8.5-10.1) mg/dL Total Bilirubin 0.2 (0.2-1.0) mg/dL AST 13 L (15-37) U/L ALT 21 (12-78) U/L Alkaline Phosphatase 68 (46-116) U/L Total Protein 5.5 L (6.4-8.2) g/dL Albumin 3.0 L (3.4-5.0) g/dL Globulin 2.5 (2.3-3.5) g/dL Albumin/Globulin Ratio 1.2 (1.2-2.2) Lipase 51 L (73-393) U/L Result Diagrams: 02/20/21 22:50 02/20/21 22:50 Sepsis Event Note - Evaluation Sepsis Screening Result: No Definite Risk - Focused Exam Vital Signs: Vital Signs Temp Pulse Resp BP Pulse Ox 02/20/21 22:27 97.8 F 86 16 129/83 100 02/20/21 22:23 97.8 F 86 16 129/83 100 - Problem List (1) Adynamic ileus SNOMED Code(s): 32938981 ICD Code: K56.0 - PARALYTIC ILEUS Status: Acute Priority: High Current Visit: Yes (2) Hypokalemia SNOMED Code(s): 72815260 ICD Code: E87.6 - HYPOKALEMIA Status: Acute Priority: Medium Current Visit: Yes (3) Bariatric surgery status SNOMED Code(s): 441216171, 131687318, 492272557 ICD Code: Z98.84 - BARIATRIC SURGERY STATUS Status: Chronic Priority: Medium Current Visit: Yes (4) Smoker SNOMED Code(s): 13115410 ICD Code: F17.200 - NICOTINE DEPENDENCE, UNSPECIFIED, UNCOMPLICATED Status: Chronic Priority: Low Current Visit: Yes Problem List Initiated/Reviewed/Updated: Yes Orders Last 24hrs: Active Orders 24 hr Category Date Time Status Patient Status Manage Transfer [TRANSFER] Routine ADT 02/21/21 00:20 Active Iopamidol [Isovue-300 (61%)] Med 02/20/21 22:45 Active 100 ml IV . DIRECTED Sodium Chloride 0.9% [Normal Saline] 80 ml Med 02/20/21 22:45 Active IV ASDIRECTED Sodium Chloride 0.9% [Saline Flush] Med 02/20/21 22:38 Active 10 ml FLUSH ASDIRECTED PRN Saline Lock Insert [OM.PC] Routine Oth 02/20/21 22:38 Ordered Resuscitation Status Routine Resus Stat 02/21/21 00:22 Ordered Medication Orders Sodium Chloride (Normal Saline) 80 mls @ 3 mls/sec IV ASDIRECTED EPHRAIM Last Admin: 02/20/21 22:57 Dose: 3 mls/sec Documented by: LI Iopamidol (Iopamidol 612 Mg/Ml 100 Ml Bottle) 100 ml IV . DIRECTED EPHRAIM Last Admin: 02/20/21 22:57 Dose: 100 ml Documented by: LI Sodium Chloride (Sodium Chloride 0.9% 10 Ml Syringe) 10 ml FLUSH ASDIRECTED PRN PRN Reason: Keep Vein Open Last Admin: 02/20/21 22:58 Dose: 10 ml Documented by: Admin: 02/20/21 22:57 Dose: 10 ml Documented by: LI Assessment/Plan Comment:: ASSESSMENT AND PLAN OF CARE- ADYNAMIC ILEUS ER WORKUP: CT of the abdomen and pelvis. There is no evidence for small bowel obstruction, however, the patient does have a significant distention of the colon without obvious obstruction. This is consistent with a colonic ileus. I discussed the case with Dr. Fitz Rodriguez who recommended the patient get a saline laxative enema, admit the patient for comfort and he will see her in the morning for further evaluation. I discussed the case with Xenia Rice CNP who will arrange for the admission. bowel obstruction- reports abdominal pain for the past 3 or 4 days, watery diarrhea yesterday. feeling constant sharp abdominal pain and distention. last bowel obstruction about 3 or 4 months ago, today symptoms are the same as previous bowel obstructions. -IV fluids -Pain and nausea management -NG tube if there is additional vomiting -Surgical consultation in the morning or sooner if condition deteriorates -Nothing by mouth -am labs BMP in am Hypokalemia- Potassium 3.2 on admission, will order Potassium replacement and recheck Potassium in am -IV Potassium 20 meq -recheck Potassium in ma Maintenance issues - - DVT prophylaxis - SCD - GI prophylaxis - IV protonix 40 meq. daily - Nutrition -nothing by mouth - [place] catheter -not indicated -Nicotine use- Nicotine 7 mg patch daily as needed CODE STATUS -full code Admission justification - this patient will be admitted for inpatient services and is medically appropriate meeting medical necessity for inpatient admission as outlined in my documentation. I reasonably expect the patient will require inpatient services that span a period time over 2 midnights. I reasonably expect this patient to be discharged or transferred within 96 hours after admission to the [facility]. Disposition -I would anticipate discharge home after the hospital stay Primary care physician - Rachael Hughes, [facility] Hospitalist- Ishmael Rose M.D. Surgeon - Ashvin Rodriguez M.D. - Mortality Measure good - Mortality Measure Prognosis:: Good
[2021-02-21] MEDS ORDERED: LORazepam 2 MG/ML SDV IV PRN (00:51)
[2021-02-21] MEDS ORDERED: Albuterol 0.083% 2.5 MG/3 ML Neb Soln NEB PRN (00:51)
[2021-02-21] MEDS ORDERED: Potassium Chloride 20 MEQ in Premix Bag 1 BAG IV ONE (00:51)
[2021-02-21] MEDS ORDERED: Sodium Phosphate,Monobasic/Sodium Phosphate,Dibasic Enema 133 ML Bottle RECTAL ONE (00:51)
[2021-02-21] MEDS: HYDROmorphone 1 MG/ML Syringe IVPUSH PRN ×3 (01:04→08:50)
[2021-02-21] MEDS: Sodium Chloride 0.9% 1,000 ML IV SCH ×3 (01:05→16:47)
[2021-02-21] MEDS: Pantoprazole 40 MG Vial IV SCH ×2 (01:05→21:34)
[2021-02-21] MEDS: Ondansetron 4 MG/2 ML SDV IV PRN ×2 (01:07→10:37)
[2021-02-21] MEDS: cefTRIAXone 1 GM in Sodium Chloride 0.9% 50 ML IV SCH (03:19)
[2021-02-21] MEDS: Acetaminophen 325 MG Tab PO PRN ×3 (06:06→16:45)
[2021-02-21] MEDS: Azithromycin 250 MG Tab PO SCH ×2 (08:41→21:33)
[2021-02-21] MEDS: Cyclobenzaprine 10 MG Tab PO SCH ×3 (08:41→21:33)
[2021-02-21] MEDS: Gabapentin 400 MG Cap PO SCH ×3 (08:42→21:33)
[2021-02-21] MEDS: Polyethylene Glycol 3350 Powder 119 GM Bottle PO SCH ×2 (08:43→21:32)
[2021-02-21] MEDS: Nicotine 7 MG/24 Hr Patch TRDERM SCH (08:43)
--- NOTE | 2021-02-21 09:12 | PCM.HP.2 ---
H&P History of Present Illness - General Date of Service: 02/21/21 Admit Problem/Dx: Admission Diagnosis/Problem Admission Diagnosis/Problem Adynamic Ileus Chronic Constipation Source of Information: Patient History Limitations: Reports: No Limitations - History of Present Illness Initial Comments - Free Text/Narative: Vanessa states that she developed abdominal pain much like when she gets a bowel obstruction. She went to the ED and the CT Scan showed a large amount of stool. Vanessa states that she can go up to 4 - 5 days without a BM then has some cramping and pain. Quality: Reports: Pressure, Same as Previous Episode, Sharp, Stabbing, Throbbing Improves with: Reports: None Worsens with: Reports: None Associated Symptoms: Reports: No Other Symptoms Abdomen Pain Score (Numeric/FACES): 4 - Related Data Allergies/Adverse Reactions: Allergies Allergy/AdvReac Type Severity Reaction Status Date / Time No Known Allergies Allergy Verified 01/22/16 13:05 Home Medications: Home Meds Cyclobenzaprine [Flexeril] 10 mg PO TID 01/19/15 [History] Gabapentin [Neurontin] 1,200 mg PO TID 01/19/15 [History] Cholecalciferol (Vitamin D3) [Vitamin D] 1,000 unit PO DAILY 01/23/15 [History] Cyanocobalamin (Vitamin B-12) [Vitamin B-12] 1,000 mcg PO DAILY 01/23/15 [History] Ped Multivit 43/Iron Fumarate [Flintstones Complete Chew Tab] 1 tab PO BID 01/23/15 [History] Vitamin B Complex 1 each PO DAILY 01/23/15 [History] Escitalopram [Lexapro] 20 mg PO BEDTIME 09/03/20 [History] polyethylene glycoL 3350 [MiraLAX] 119 gm PO ONETIME #119 gm 09/07/20 [Rx] Past Medical History HEENT History: Reports: None Respiratory History: Reports: Sleep Apnea Gastrointestinal History: Reports: Bowel Obstruction 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 History: Reports: Musculoskeletal History: Reports: Back Pain, Chronic Neurological History: Reports: Migraines Psychiatric History: Reports: Anxiety Endocrine/Metabolic History: Reports: Obesity/BMI 30+ - Infectious Disease History Infectious Disease History: Reports: Chicken Pox - Past Surgical History HEENT Surgical History: Reports: Tonsillectomy GI Surgical History: Reports: Bariatric Procedure, Esophageal Dilatation, Hernia, Abdominal, Lysis of Adhesions Neurological Surgical History: Reports: Spinal Fusion Other Neurological Surgeries/Procedures: L4-S1 Social & Family History - Family History Cardiac: Reports: High Cholesterol, Hypertension Neurological: Reports: CVA - Tobacco Use Tobacco Use Status *Q: Current Every Day Tobacco User Years of Tobacco use: 5 Packs/Tins Daily: 0.5 Used Tobacco, but Quit: No Second Hand Smoke Exposure: No - Caffeine Use Caffeine Use: Reports: Coffee, Soda, Tea Other Caffeine Use: 3 cans a day soda, 2 cups of coffee a day - Recreational Drug Use Recreational Drug Use: No - Living Situation & Occupation Living situation: Reports: Single, Alone Occupation: Employed (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 lives alone in [place], [place]. has two adult children.) H&P Review of Systems - Review of Systems: Review Of Systems: Comprehensive ROS is negative, except as noted in HPI. Exam - Exam Exam: See Below - Vital Signs Vital Signs: Last Vital Signs Temp 98.2 F 02/21/21 07:45 Pulse 79 02/21/21 07:45 Resp 18 02/21/21 07:45 BP 113/67 02/21/21 07:45 Pulse Ox 95 02/21/21 07:45 Weight: 151 lb - Exam Quality Assessment: DVT Prophylaxis General: Alert, Oriented, Cooperative HEENT: PERRLA, Conjunctiva Clear Neck: Supple, Trachea Midline Lungs: Clear to Auscultation, Normal Respiratory Effort Cardiovascular: Regular Rate, Regular Rhythm GI/Abdominal Exam: Soft, Non-Tender, Distended (Female) Exam: Deferred Rectal (Female) Exam: Deferred Back Exam: Normal Inspection, Full Range of Motion Extremities: Normal Inspection, Normal Range of Motion, No Pedal Edema Neurological: Cranial Nerves Intact, Reflexes Equal Bilateral Neuro Extensive - Mental Status: Alert, Oriented x3, Normal Mood/Affect Neuro Extensive - Motor, Sensory, Reflexes: CN II-XII Intact Psychiatric: Alert, Normal Affect - Patient Data Lab Results Last 24 hrs: Laboratory Results - last 24 hr 02/20/21 02/20/21 02/20/21 Range/Units 22:50 22:50 22:50 WBC 7.6 (4.5-11.0) K/uL RBC 3.82 (3.30-5.50) M/uL Hgb 11.7 L (12.0-15.0) g/dL Hct 35.9 L (36.0-48.0) % MCV 94 (80-98) fL MCH 31 (27-31) pg MCHC 33 (32-36) % Plt Count 311 (150-400) K/uL Neut % (Auto) 63 (36-66) % Lymph % (Auto) 25 (24-44) % [place] % (Auto) 8 H (2-6) % Eos % (Auto) 4 (2-4) % Baso % (Auto) 0 (0-1) % PT 10.7 (9.5-12.0) sec INR 0.98 (0.80-1.20) APTT 26.6 L (27.0-36.0) sec Sodium 146 (140-148) mmol/L Potassium 3.2 L (3.6-5.2) mmol/L Chloride 110 H (100-108) mmol/L Carbon Dioxide 25 (21-32) mmol/L Anion Gap 14.2 H (5.0-14.0) mmol/L BUN 9 D (7-18) mg/dL Creatinine 0.5 L (0.6-1.0) mg/dL Est Cr Clr Drug Dosing 117.54 mL/min Estimated GFR (MDRD) > 60 (>60) Glucose 85 (74-106) mg/dL Calcium 7.5 L (8.5-10.1) mg/dL Total Bilirubin 0.2 (0.2-1.0) mg/dL AST 13 L (15-37) U/L ALT 21 (12-78) U/L Alkaline Phosphatase 68 (46-116) U/L Total Protein 5.5 L (6.4-8.2) g/dL Albumin 3.0 L (3.4-5.0) g/dL Globulin 2.5 (2.3-3.5) g/dL Albumin/Globulin Ratio 1.2 (1.2-2.2) Lipase 51 L (73-393) U/L Urine Color (YELLOW) Urine Appearance (CLEAR) Urine pH (5.0-8.0) Ur Specific [place] (1.008-1.030) Urine Protein (NEGATIVE) mg/dL Urine Glucose (UA) (NEGATIVE) mg/dL Urine Ketones (NEGATIVE) mg/dL Urine Occult Blood (NEGATIVE) Urine Nitrite (NEGATIVE) Urine Bilirubin (NEGATIVE) Urine Urobilinogen (0.2-1.0) EU/dL Ur Leukocyte Esterase (NEGATIVE) Urine RBC (0-5) Urine WBC (0-5) Ur Epithelial Cells Amorphous Sediment Urine Bacteria Urine Mucus 02/21/21 02/21/21 Range/Units 00:51 06:18 WBC (4.5-11.0) K/uL RBC (3.30-5.50) M/uL Hgb (12.0-15.0) g/dL Hct (36.0-48.0) % MCV (80-98) fL MCH (27-31) pg MCHC (32-36) % Plt Count (150-400) K/uL Neut % (Auto) (36-66) % Lymph % (Auto) (24-44) % [place] % (Auto) (2-6) % Eos % (Auto) (2-4) % Baso % (Auto) (0-1) % PT (9.5-12.0) sec INR (0.80-1.20) APTT (27.0-36.0) sec Sodium 147 (140-148) mmol/L Potassium 3.2 L (3.6-5.2) mmol/L Chloride 112 H (100-108) mmol/L Carbon Dioxide 25 (21-32) mmol/L Anion Gap 13.2 (5.0-14.0) mmol/L BUN 8 (7-18) mg/dL Creatinine 0.4 L (0.6-1.0) mg/dL Est Cr Clr Drug Dosing 146.92 mL/min Estimated GFR (MDRD) > 60 (>60) Glucose 82 (74-106) mg/dL Calcium 8.1 L (8.5-10.1) mg/dL Total Bilirubin (0.2-1.0) mg/dL AST (15-37) U/L ALT (12-78) U/L Alkaline Phosphatase (46-116) U/L Total Protein (6.4-8.2) g/dL Albumin (3.4-5.0) g/dL Globulin (2.3-3.5) g/dL Albumin/Globulin Ratio (1.2-2.2) Lipase (73-393) U/L Urine Color Yellow (YELLOW) Urine Appearance Slightly cloudy A (CLEAR) Urine pH 6.0 (5.0-8.0) Ur Specific [place] 1.020 (1.008-1.030) Urine Protein Negative (NEGATIVE) mg/dL Urine Glucose (UA) Negative (NEGATIVE) mg/dL Urine Ketones Negative (NEGATIVE) mg/dL Urine Occult Blood Negative (NEGATIVE) Urine Nitrite Positive H (NEGATIVE) Urine Bilirubin Negative (NEGATIVE) Urine Urobilinogen 0.2 (0.2-1.0) EU/dL Ur Leukocyte Esterase Negative (NEGATIVE) Urine RBC 0-5 (0-5) Urine WBC 0-5 (0-5) Ur Epithelial Cells Rare Amorphous Sediment Not seen Urine Bacteria Many Urine Mucus Not seen Result Diagrams: 02/20/21 22:50 02/21/21 06:18 Sepsis Event Note - Evaluation Sepsis Screening Result: No Definite Risk - Focused Exam Vital Signs: Vital Signs Temp Pulse Resp BP Pulse Ox 02/21/21 07:45 98.2 F 79 18 113/67 95 02/21/21 07:30 97 02/21/21 03:22 97.4 F 73 18 110/68 97 02/21/21 03:17 97 02/21/21 00:51 97.4 F 79 18 123/76 99 02/20/21 22:27 97.8 F 86 16 129/83 100 02/20/21 22:23 97.8 F 86 16 129/83 100 - Problem List (1) Chronic constipation SNOMED Code(s): 861505059 ICD Code: K59.09 - OTHER CONSTIPATION Status: Acute Current Visit: Yes (2) Abdominal distension (gaseous) SNOMED Code(s): 215794003 ICD Code: R14.0 - ABDOMINAL DISTENSION (GASEOUS) Status: Acute Current Visit: Yes (3) Adynamic ileus SNOMED Code(s): 69243541 ICD Code: K56.0 - PARALYTIC ILEUS Status: Acute Priority: High Current Visit: Yes Problem List Initiated/Reviewed/Updated: Yes Orders Last 24hrs: Active Orders 24 hr Category Date Time Status Communication Order [RC] ASDIRECTED Care 02/21/21 07:35 Active Enema [RC] ASDIRECTED Care 02/21/21 07:38 Active Intake and Output [RC] QSHIFT Care 02/21/21 00:51 Active Notify Provider Consults [RC] ASDIRECTED Care 02/21/21 00:51 Active Notify Provider Vital Signs [RC] ASDIRECTED Care 02/21/21 00:51 Active Oxygen Therapy [RC] PRN Care 02/21/21 00:51 Active Pulse Oximetry [RC] CONTINUOUS Care 02/21/21 00:51 Active RT Aerosol Therapy [RC] ASDIRECTED Care 02/21/21 00:51 Active Up ad [place] [RC] ASDIRECTED Care 02/21/21 00:51 Active Vital Signs [RC] Q4H Care 02/21/21 00:51 Active Consult to Physician [CONS] Routine Cons 02/21/21 00:51 Ordered Bariatric Diet [DIET] Diet 02/21/21 Breakfast Active Abdomen 2V AP Flat Upright [CR] Timed Exams 02/22/21 04:00 Ordered CULTURE URINE [RM] Routine Lab 02/21/21 01:40 Received Acetaminophen [TylenoL] Med 02/21/21 05:56 Active 650 mg PO Q4H PRN Albuterol [Proventil Neb Soln] Med 02/21/21 00:51 Active 2.5 mg NEB Q4H PRN Azithromycin [Zithromax] Med 02/21/21 09:00 Active 125 mg PO BID Cyclobenzaprine [Flexeril] Med 02/21/21 09:00 Active 10 mg PO TID Escitalopram [Lexapro] Med 02/21/21 21:00 Active 20 mg PO BEDTIME Gabapentin [Neurontin] Med 02/21/21 09:00 Active 1,200 mg PO TID HYDROmorphone [Dilaudid] Med 02/21/21 00:51 Active 1 mg IVPUSH Q2H PRN LORazepam [Ativan] Med 02/21/21 00:51 Active 1 mg IV Q6H PRN Nicotine [Habitrol] Med 02/21/21 09:00 Active 7 mg TRDERM DAILY Ondansetron [Zofran] Med 02/21/21 00:51 Active 4 mg IV Q4H PRN Pantoprazole [ProTONIX IV] Med 02/21/21 00:51 Active 40 mg IV BEDTIME Sodium Chloride 0.9% [Normal Saline] 1,000 ml Med 02/21/21 00:51 Active IV ASDIRECTED cefTRIAXone [Rocephin] 1 gm Med 02/21/21 04:00 Active Sodium Chloride 0.9% [Normal Saline] 50 ml IV Q24H polyethylene glycoL 3350 [MiraLAX] Med 02/21/21 09:00 Active 119 gm PO BID Saline Lock Insert [OM.PC] Routine Oth 02/20/21 22:38 Ordered Sequential Compression Device [OM.PC] Per Unit Routine Oth 02/21/21 00:51 Ordered Resuscitation Status Routine Resus Stat 02/21/21 00:22 Ordered Medication Orders Acetaminophen (Acetaminophen 325 Mg Tab) 650 mg PO Q4H PRN PRN Reason: Headache Last Admin: 02/21/21 06:06 Dose: 650 mg Documented by: XUAN Albuterol (Albuterol 0.083% 2.5 Mg/3 Ml Neb Soln) 2.5 mg NEB Q4H PRN PRN Reason: Shortness Of Breath/wheezing Azithromycin (Azithromycin 250 Mg Tab) 125 mg PO BID [facility] Last Admin: 02/21/21 08:41 Dose: 125 mg Documented by: JOSELO Cosigned by: JIMMY Cyclobenzaprine HCl (Cyclobenzaprine 10 Mg Tab) 10 mg PO TID [facility] Last Admin: 02/21/21 08:41 Dose: 10 mg Documented by: JOSELO Mistryigned by: JIMMY Escitalopram Oxalate (Escitalopram 20 Mg Tab) 20 mg PO BEDTIME [facility] Gabapentin (Gabapentin 400 Mg Cap) 1,200 mg PO TID [facility] Last Admin: 02/21/21 08:42 Dose: 1,200 mg Documented by: JOSELO Mistryigned by: JIMMY Hydromorphone HCl (Hydromorphone 1 Mg/Ml Syringe) 1 mg IVPUSH Q2H PRN PRN Reason: Abdominal Pain Last Admin: 02/21/21 08:50 Dose: 1 mg Documented by: JOSELO Mistryigned by: JIMMY Admin: 02/21/21 04:29 Dose: 1 mg Documented by: Admin: 02/21/21 01:04 Dose: 1 mg Documented by: XUAN Sodium Chloride (Normal Saline) 1,000 mls @ 125 mls/hr IV ASDIRECTED [facility] Last Admin: 02/21/21 01:05 Dose: 125 mls/hr Documented by: XUAN Ceftriaxone Sodium 1 gm/ (Sodium Chloride) 50 mls @ 100 mls/hr IV Q24H [facility] Last Admin: 02/21/21 03:19 Dose: 100 mls/hr Documented by: XUAN Lorazepam (Lorazepam 2 Mg/Ml Sdv) 1 mg IV Q6H PRN PRN Reason: Nausea/Vomiting Nicotine (Nicotine 7 Mg/24 Hr Patch) 7 mg TRDERM DAILY [facility] Last Admin: 02/21/21 08:43 Dose: 7 mg Documented by: JOSELO Cosigned by: JIMMY Ondansetron HCl (Ondansetron 4 Mg/2 Ml Sdv) 4 mg IV Q4H PRN PRN Reason: Nausea/Vomiting Last Admin: 02/21/21 01:07 Dose: 4 mg Documented by: XUAN Pantoprazole Sodium (Pantoprazole 40 Mg Vial) 40 mg IV BEDTIME [facility] Last Admin: 02/21/21 01:05 Dose: 40 mg Documented by: XUAN Polyethylene Glycol (Polyethylene Glycol 3350 Powder 119 Gm Bottle) 119 gm PO BID [facility] Stop: 02/21/21 23:59 Last Admin: 02/21/21 08:43 Dose: 119 gram Documented by: JOSELO Cosigned by: JIMMY Assessment/Plan Comment:: ASSESSMENT AND PLAN OF CARE- ADYNAMIC ILEUS Chronic Constipation Restart Home medications Start Amitiza or Linzess dependant on insurance coverage Saline Enema 750 mls now Miralax 119 grams bid today Zithromax 125 mg po bid Abdominal Flat and Upright Xray in AM 02/22/2021 Step Gastric Bypass Diet Communication Order: may have coffee. Based on CT Scan radiologist recommends to have a Pelvic US in 6 weeks. Will Evaluate prn or in AM CODE STATUS -full code Admission justification - this patient will be admitted for inpatient services and is medically appropriate meeting medical necessity for inpatient admission as outlined in my documentation. I reasonably expect the patient will require inpatient services that span a period time over 2 midnights. I reasonably expect this patient to be discharged or transferred within 96 hours [facility]. Disposition -I would anticipate discharge home after the hospital stay Primary care physician - Rachael Hughes, [facility] Hospitalist- Ishmael Rose M.D. Surgeon - Ashvin Rodriguez M.D. - Mortality Measure good Kassie Norby PA C - Mortality Measure Prognosis:: Good
[2021-02-21] MEDS: Potassium Acetate 20 MEQ, Lidocaine 1% 2 ML in Sodium Chloride 0.9% 100 ML IV SCH ×2 (17:40→20:09)
[2021-02-21] MEDS ORDERED: Escitalopram 20 MG Tab PO SCH (21:00)
[2021-02-22] MEDS: cefTRIAXone 1 GM in Sodium Chloride 0.9% 50 ML IV SCH (03:17)
[2021-02-22 07:43] VITALS: BP 128/76; PULSE 86
[2021-02-22] MEDS: Azithromycin 250 MG Tab PO SCH (08:07)
[2021-02-22] MEDS: Cyclobenzaprine 10 MG Tab PO SCH (08:07)
[2021-02-22] MEDS: Nicotine 7 MG/24 Hr Patch TRDERM SCH (08:08)
[2021-02-22] MEDS: Gabapentin 400 MG Cap PO SCH (08:08)
[2021-02-22] MEDS: Acetaminophen 325 MG Tab PO PRN (08:13)
[2021-02-22] MEDS ORDERED: Polyethylene Glycol 3350 Powder 17 GM Packet PO SCH (09:00)
--- NOTE | 2021-02-22 09:18 | CR ---
Abdomen 2V AP Flat Upright CLINICAL HISTORY: Constipation FINDINGS: There are scattered air-filled loops of small bowel and colon. Colonic distention has diminished when compared to prior study. Patient is status post gastric bypass and Chung-en-Y. No free air is seen IMPRESSION: Decreased colonic distention since prior study
--- NOTE | 2021-02-24 07:29 | PCM.DCSUM1 ---
Discharge Summary - Hospital Course Free Text/Narrative:: Vanessa was admitted with severe abdominal pain. A CT Scan revealed an adynamic ileus. History of chronic constipation stating she has a BM every 4 - 5 days and really doesn't pay attention until she starts to get cramping abdominal pain. Vanessa was given bowel stimulation and enemas and once her bowels started to work she felt better and pain discontinued. She was able to tolerate a Step 4 Diet, had dietary consultation, vital signs were stable and she was discharged in stable condition on 02/22/2021 - Discharge Data Discharge Date: 02/22/21 Discharge Disposition: Home, Self-Care 01 Condition: Good - Referral to Home Health Primary Care Physician: PCP None - Discharge Diagnosis/Problem(s) (1) Chronic constipation SNOMED Code(s): 022110658 ICD Code: K59.09 - OTHER CONSTIPATION Status: Acute (2) Abdominal distension (gaseous) SNOMED Code(s): 032753240 ICD Code: R14.0 - ABDOMINAL DISTENSION (GASEOUS) Status: Acute (3) Adynamic ileus SNOMED Code(s): 55910945 ICD Code: K56.0 - PARALYTIC ILEUS Status: Acute Priority: High - Patient Summary/Data Consults: Consultations 02/21/21 00:51 Consult to Physician [CONS] Routine Consulting Provider: Ashvin Rodriguez Courtesy Call Completed to Consulting Physician: Yes Reason for Consult: colonic ileus Person Notified: Dr. Rodriguez Date Notified: 02/20/21 Special Instructions: admit - Patient Instructions Diet: Usual Diet as Tolerated, Drink 8-10+ Glasses/Day Activity: As Tolerated Driving: May Drive Today Showering/Bathing: May Shower Notify Provider of: Fever, Increased Pain, Nausea and/or Vomiting - Discharge Plan Prescriptions/Med Rec: polyethylene glycoL 3350 [MiraLAX] 34 gm PO DAILY #60 packet Azithromycin [Zithromax] 125 mg PO BID #30 tablet Home Medications: Home Meds Cyclobenzaprine [Flexeril] 10 mg PO TID 01/19/15 [History] Gabapentin [Neurontin] 1,200 mg PO TID 01/19/15 [History] Cholecalciferol (Vitamin D3) [Vitamin D3] 1,000 unit PO DAILY 01/23/15 [History] Cyanocobalamin (Vitamin B-12) [Vitamin B-12] 1,000 mcg PO DAILY 01/23/15 [History] Ped Multivit 43/Iron Fumarate [Flintstones Complete Chew Tab] 1 tab PO BID 01/23/15 [History] Vitamin B Complex 1 each PO DAILY 01/23/15 [History] Escitalopram [Lexapro] 20 mg PO BEDTIME 09/03/20 [History] polyethylene glycoL 3350 [MiraLAX] 119 gm PO ONETIME #119 gm 09/07/20 [Rx] Azithromycin [Zithromax] 125 mg PO BID #30 tablet 02/22/21 [Rx] polyethylene glycoL 3350 [MiraLAX] 34 gm PO DAILY #60 packet 02/22/21 [Rx] Patient Handouts: Constipation, Adult, [id number], Polyethylene Glycol powder Referrals: Kassie Clark PA-C [Physician Technology Adoption Manager] - 03/05/21 10:00 am (This can be a Virtual Appointment if patient can't come to [place]. ) - Discharge Summary/Plan Comment DC Time >30 min.: Yes Discharge Summary/Plan Comment: Recommend to follow bowel program. Increase liquids. Follow up prn or for follow up appointment. Kassie Jett - Patient Data Vitals - Most Recent: Last Vital Signs Temp 98.2 F 02/22/21 07:00 Pulse 86 02/22/21 07:00 Resp 18 02/22/21 07:00 BP 128/76 02/22/21 07:00 Pulse Ox 97 02/22/21 07:48 Weight - Most Recent: 151 lb ELISE Results - Last 24 hrs: Microbiology 02/21/21 01:40 Urine Culture - Final Urine, Voided Escherichia Coli Med Orders - Current: Current Medications Discontinued Medications Acetaminophen (Acetaminophen 325 Mg Tab) 650 mg PO Q4H PRN PRN Reason: Headache Last Admin: 02/22/21 08:13 Dose: 650 mg Documented by: Albuterol (Albuterol 0.083% 2.5 Mg/3 Ml Neb Soln) 2.5 mg NEB Q4H PRN PRN Reason: Shortness Of Breath/wheezing Azithromycin (Azithromycin 250 Mg Tab) 125 mg PO BID [facility] Last Admin: 02/22/21 08:07 Dose: 125 mg Documented by: Cyclobenzaprine HCl (Cyclobenzaprine 10 Mg Tab) 10 mg PO TID [facility] Last Admin: 02/22/21 08:07 Dose: 10 mg Documented by: Escitalopram Oxalate (Escitalopram 20 Mg Tab) 20 mg PO BEDTIME [facility] Last Admin: 02/21/21 21:35 Dose: 20 mg Documented by: Gabapentin (Gabapentin 400 Mg Cap) 1,200 mg PO TID [facility] Last Admin: 02/22/21 08:08 Dose: 1,200 mg Documented by: Hydromorphone HCl (Hydromorphone 1 Mg/Ml Syringe) 1 mg IVPUSH Q2H PRN PRN Reason: Abdominal Pain Last Admin: 02/21/21 08:50 Dose: 1 mg Documented by: Sodium Chloride (Normal Saline) 80 mls @ 3 mls/sec IV ASDIRECTED [facility] Last Admin: 02/20/21 22:57 Dose: 3 mls/sec Documented by: Sodium Chloride (Normal Saline) 1,000 mls @ 125 mls/hr IV ASDIRECTED [facility] Last Admin: 02/21/21 16:47 Dose: 125 mls/hr Documented by: Potassium Chloride 20 meq/ (Premix) 100 mls @ 50 mls/hr IV ONETIME ONE Stop: 02/21/21 02:50 Last Admin: 02/21/21 01:06 Dose: 50 mls/hr Documented by: Ceftriaxone Sodium 1 gm/ (Sodium Chloride) 50 mls @ 100 mls/hr IV Q24H [facility] Last Admin: 02/22/21 03:17 Dose: 100 mls/hr Documented by: Potassium Acetate 20 meq/Lidocaine HCl 2 ml/ Sodium Chloride 112 mls @ 56 mls/hr IV Q2H [facility] Stop: 02/21/21 21:29 Last Admin: 02/21/21 20:09 Dose: 56 mls/hr Documented by: Iopamidol (Iopamidol 612 Mg/Ml 100 Ml Bottle) 100 ml IV . DIRECTED [facility] Last Admin: 02/20/21 22:57 Dose: 100 ml Documented by: Lorazepam (Lorazepam 2 Mg/Ml Sdv) 1 mg IV Q6H PRN PRN Reason: Nausea/Vomiting Last Admin: 02/21/21 12:58 Dose: 1 mg Documented by: Nicotine (Nicotine 7 Mg/24 Hr Patch) 7 mg TRDERM DAILY [facility] Last Admin: 02/22/21 08:08 Dose: Not Given Documented by: Ondansetron HCl (Ondansetron 4 Mg/2 Ml Sdv) 4 mg IV Q4H PRN PRN Reason: Nausea/Vomiting Last Admin: 02/21/21 10:37 Dose: 4 mg Documented by: Pantoprazole Sodium (Pantoprazole 40 Mg Vial) 40 mg IV BEDTIME [facility] Last Admin: 02/21/21 21:34 Dose: 40 mg Documented by: Polyethylene Glycol (Polyethylene Glycol 3350 Powder 119 Gm Bottle) 119 gm PO BID [facility] Stop: 02/21/21 23:59 Last Admin: 02/21/21 21:32 Dose: 119 gram Documented by: Polyethylene Glycol (Polyethylene Glycol 3350 Powder 17 Gm Packet) 34 gm PO DAILY [facility] Last Admin: 02/22/21 08:08 Dose: 34 gm Documented by: Sodium Biphosphate/Sodium Phosphate (Sodium Phosphate,Monobasic/Sodium Phosphate,Dibasic Enema 133 Ml Bottle) 133 ml RECTAL ONETIME ONE Stop: 02/21/21 00:52 Last Admin: 02/21/21 01:06 Dose: 133 ml Documented by: Sodium Chloride (Sodium Chloride 0.9% 10 Ml Syringe) 10 ml FLUSH ASDIRECTED PRN PRN Reason: Keep Vein Open Last Admin: 02/20/21 22:58 Dose: 10 ml Documented by:
== END 2021-02-22 10:25 | disposition home or self-care (01) | DRG 254 ==
LOC: JP.ED 22:05 → JP.MS 02-21 00:20
PROVIDERS: ADMIT Internal Medicine; ATTEND Surgery
DX: K59.09 Other constipation (principal); K56.0 Paralytic ileus; Z79.899 Other long term (current) drug therapy; G47.30 Sleep apnea, unspecified; G89.29 Other chronic pain; M54.9 Dorsalgia, unspecified; G43.909 Migraine, unspecified, not intractable, without status migrainosus; F41.9 Anxiety disorder, unspecified; E66.9 Obesity, unspecified; E78.00 Pure hypercholesterolemia, unspecified; I10 Essential (primary) hypertension; F17.210 Nicotine dependence, cigarettes, uncomplicated; E87.6 Hypokalemia; Z90.89 Acquired absence of other organs; Z98.84 Bariatric surgery status; Z98.1 Arthrodesis status
CPT/HCPCS: 36415; 74019; 74019-26; 74177; 80048; 80053; 81001; 83690; 83735; 84100; 85025; 85027; 85610; 85730; 87086; 87088; 87186; 94762; 99285-25; A9270-GY; C9113; J0696; J1170; J2001; J2060; J2405; J3480; J3490; J7030; Q9967

== ENCOUNTER 2021-02-27 21:19 | Inpatient (IN) | payer BC, MEDICAID ==
[2021-02-27] MEDS ORDERED: Sodium Chloride 0.9% 10 ML Syringe FLUSH PRN (21:52)
[2021-02-27] MEDS ORDERED: Sodium Chloride 0.9% 80 ML IV SCH (22:15)
[2021-02-27] MEDS ORDERED: Iopamidol 612 MG/ML 100 ML Bottle IV SCH (22:15)
--- NOTE | 2021-02-27 22:21 | EDM.PDOC ---
ED HPI GENERAL MEDICAL PROBLEM - General Chief Complaint: Gastrointestinal Problem Stated Complaint: STOMACH ISSUES Time Seen by Provider: 02/27/21 22:00 Source of Information: Reports: Patient, Old Records, RN History Limitations: Reports: No Limitations - History of Present Illness INITIAL COMMENTS - FREE TEXT/NARRATIVE: 45 yo female s/p gastric bypass presents with mild generalized bloating and pain. No vomiting. No BM's. Was in the ER and watched in the hospital last week for the same. She was prescribed Miralax that she has been taking once daily without results or relief. Eating makes her sx's worse. Has not yet had her clinic follow up visit yet since discharge from the hospital. Onset: Gradual Duration: Day(s):, Getting Worse Location: Reports: Abdomen Quality: Reports: Dull, Pressure Severity: Moderate Improves with: Reports: None Worsens with: Reports: Eating, Other (time) Context: Reports: Other (See HPI) Associated Symptoms: Reports: Other (no BM's). Denies: Fever/Chills, Nausea/Vomiting Treatments OUTPATIENT COORDINATOR: Reports: Other (see below) (Miralax once daily) Upper Abdomen Pain Score (Numeric/FACES): 8 - Related Data Allergies Allergy/AdvReac Type Severity Reaction Status Date / Time No Known Allergies Allergy Verified 02/27/21 21:31 Home Meds: Home Meds Cyclobenzaprine [Flexeril] 10 mg PO TID 01/19/15 [History] Gabapentin [Neurontin] 1,200 mg PO TID 01/19/15 [History] Cholecalciferol (Vitamin D3) [Vitamin D3] 1,000 unit PO DAILY 01/23/15 [History] Cyanocobalamin (Vitamin B-12) [Vitamin B-12] 1,000 mcg PO DAILY 01/23/15 [History] Ped Multivit 43/Iron Fumarate [Flintstones Complete Chew Tab] 1 tab PO BID 01/23/15 [History] Vitamin B Complex 1 each PO DAILY 01/23/15 [History] polyethylene glycoL 3350 [MiraLAX] 119 gm PO ONETIME #119 gm 09/07/20 [Rx] Azithromycin [Zithromax] 125 mg PO BID #30 tablet 02/22/21 [Rx] polyethylene glycoL 3350 [MiraLAX] 34 gm PO DAILY #60 packet 02/22/21 [Rx] Past Medical History HEENT History: Reports: None Respiratory History: Reports: Sleep Apnea Gastrointestinal History: Reports: Bowel Obstruction 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: Musculoskeletal History: Reports: Back Pain, Chronic Neurological History: Reports: Migraines Psychiatric History: Reports: Anxiety Endocrine/Metabolic History: Reports: Obesity/BMI 30+ - Infectious Disease History Infectious Disease History: Reports: Chicken Pox - Past Surgical History HEENT Surgical History: Reports: Tonsillectomy GI Surgical History: Reports: Bariatric Procedure, Esophageal Dilatation, Hernia, Abdominal, Lysis of Adhesions Other GI Surgeries/Procedures: "last january" Neurological Surgical History: Reports: Spinal Fusion Other Neurological Surgeries/Procedures: L4-S1 Other Musculoskeletal Surgeries/Procedures:: back surgery Social & Family History - Family History Cardiac: Reports: High Cholesterol, Hypertension Neurological: Reports: CVA - Tobacco Use Tobacco Use Status *Q: Current Every Day Tobacco User Years of Tobacco use: 14 Packs/Tins Daily: 0.5 - Caffeine Use Caffeine Use: Reports: Coffee, Soda, Tea Other Caffeine Use: 3 cans a day soda, 2 cups of coffee a day - Recreational Drug Use Recreational Drug Use: No - Living Situation & Occupation Living situation: Reports: Single, Alone 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 has two adult children.) ED ROS GENERAL - Review of Systems Review Of Systems: See Below Constitutional: Reports: No Symptoms HEENT: Reports: No Symptoms Respiratory: Reports: No Symptoms Cardiovascular: Reports: No Symptoms Endocrine: Reports: No Symptoms GI/Abdominal: Reports: Abdominal Pain, Constipation, Distension. Denies: Black Stool, Bloody Stool, Hematemesis, Hematochezia, Melena, Nausea, Vomiting : Reports: No Symptoms Musculoskeletal: Reports: No Symptoms Skin: Reports: No Symptoms Neurological: Reports: No Symptoms Psychiatric: Reports: No Symptoms ED EXAM, GI/ABD - Physical Exam Exam: See Below Exam Limited By: No Limitations General Appearance: Alert, WD/WN, No Apparent Distress Eyes: Bilateral: Normal Appearance Ears: Normal External Exam, Normal Canal, Hearing Grossly Normal Nose: Normal Inspection, No Blood Throat/Mouth: Normal Inspection, Normal Lips, Normal Oropharynx, Normal Voice, No Airway Compromise Head: Atraumatic, Normocephalic Neck: Normal Inspection Respiratory/Chest: No Respiratory Distress, Lungs Clear, Normal Breath Sounds, No Accessory Muscle Use Cardiovascular: Regular Rate, Rhythm, No Edema GI/Abdominal Exam: Normal Bowel Sounds, Soft, Non-Tender, Distended (mildly), Tender (diffuse), Other (some dullness with percussion). No: No Distention, Guarding, Rigid, Rebound Back Exam: Normal Inspection Extremities: Normal Inspection, Normal Range of Motion, Non-Tender, No Pedal Edema. No: Pedal Edema Neurological: Alert, Oriented, CN II-XII Intact, Normal Cognition, No Motor/Sensory Deficits Psychiatric: Normal Affect, Normal Mood Skin Exam: Warm, Dry, Intact, Normal Color, No Rash Course - Vital Signs Text/Narrative:: Dr. Fitz Rodriguez paged at 2343h Last Recorded V/S: Last Vital Signs Temp 36.4 C 02/27/21 21:37 Pulse 94 02/27/21 21:37 Resp 16 02/27/21 21:37 BP 128/84 02/27/21 21:37 Pulse Ox 99 02/27/21 21:37 - Orders/Labs/Meds Orders: Active Orders 24 hr Category Date Time Status Enema [RC] ASDIRECTED Care 02/27/21 22:45 Active Iopamidol [Isovue-300 (61%)] Med 02/27/21 22:15 Active 100 ml IV . DIRECTED Sodium Chloride 0.9% [Normal Saline] 80 ml Med 02/27/21 22:15 Active IV ASDIRECTED Sodium Chloride 0.9% [Saline Flush] Med 02/27/21 21:52 Active 10 ml FLUSH ASDIRECTED PRN Saline Lock Insert [OM.PC] Routine Oth 02/27/21 21:52 Ordered Medication Orders Sodium Chloride (Normal Saline) 80 mls @ 3 mls/sec IV ASDIRECTED EPHRAIM Last Admin: 02/27/21 22:19 Dose: 3 mls/sec Documented by: LI Iopamidol (Iopamidol 612 Mg/Ml 100 Ml Bottle) 100 ml IV . DIRECTED EPHRAIM Last Admin: 02/27/21 22:19 Dose: 100 ml Documented by: LI Sodium Chloride (Sodium Chloride 0.9% 10 Ml Syringe) 10 ml FLUSH ASDIRECTED PRN PRN Reason: Keep Vein Open Last Admin: 02/27/21 22:19 Dose: 10 ml Documented by: MYKLALY Labs: Laboratory Tests 02/27/21 02/27/21 Range/Units 22:11 22:11 WBC 9.0 (4.5-11.0) K/uL RBC 3.99 (3.30-5.50) M/uL Hgb 11.9 L (12.0-15.0) g/dL Hct 37.8 (36.0-48.0) % MCV 95 (80-98) fL MCH 30 (27-31) pg MCHC 32 (32-36) % Plt Count 326 (150-400) K/uL Sodium 148 (140-148) mmol/L Potassium 3.9 (3.6-5.2) mmol/L Chloride 107 (100-108) mmol/L Carbon Dioxide 27 (21-32) mmol/L Anion Gap 14.0 (5.0-14.0) mmol/L BUN 13 D (7-18) mg/dL Creatinine 0.6 (0.6-1.0) mg/dL Est Cr Clr Drug Dosing 97.95 mL/min Estimated GFR (MDRD) > 60 (>60) Glucose 90 (74-106) mg/dL Calcium 8.9 (8.5-10.1) mg/dL C-Reactive Protein < 0.05 (0.0-0.3) mg/dL Meds: Medications Generic Name Dose Route Start Last Admin Trade Name Freq PRN Reason Stop Dose Admin Sodium Chloride 80 mls @ 3 mls/sec 02/27/21 22:15 02/27/21 22:19 Normal Saline IV 3 mls/sec ASDIRECTED EPHRAIM Administration Iopamidol 100 ml 02/27/21 22:15 02/27/21 22:19 Iopamidol 612 Mg/Ml 100 Ml Bottle IV 100 ml . DIRECTED EPHRAIM Administration Sodium Chloride 10 ml 02/27/21 21:52 02/27/21 22:19 Sodium Chloride 0.9% 10 Ml Syringe FLUSH 10 ml ASDIRECTED PRN Administration Keep Vein Open - Radiology Interpretation Free Text/Narrative:: CT abd/pelvis with IV contrast-Impression: 1. Large colonic stool load throughout, suggesting obstipation. Mild secondary distention of the distal small bowel. 2. Small bowel-small bowel intussusception involving an approximately 6 cm segment in the anterior lower abdomen. No evidence of proximal obstruction. Please note that all CT scans at this facility use dose modulation, iterative reconstruction, and/or weight-based dosing when appropriate to reduce radiation dose to as low as reasonably achievable. Dictated by Neli Gay MD @ Feb 27 2021 11:25PM CT Results Date: 02/27/21 Departure - Departure Time of Disposition: 23:50 Disposition: Admitted As Inpatient 66 Condition: Fair Clinical Impression: Small bowel intussusception, Obstipation - Discharge Information Referrals: PCP,None [Primary Care Provider] - Forms: ED Department Discharge Sepsis Event Note (ED) - Evaluation Sepsis Screening Result: No Definite Risk - Focused Exam Vital Signs: Vital Signs Temp Pulse Resp BP Pulse Ox 02/27/21 21:37 36.4 C 94 16 128/84 99 02/27/21 21:31 36.4 C 94 16 128/84 99 - My Orders Last 24 Hours: My Active Orders 02/27/21 21:52 Sodium Chloride 0.9% [Saline Flush] 10 ml FLUSH ASDIRECTED PRN Saline Lock Insert [OM.PC] Routine 02/27/21 22:15 Iopamidol [Isovue-300 (61%)] 100 ml IV . DIRECTED Sodium Chloride 0.9% [Normal Saline] 80 ml IV ASDIRECTED 02/27/21 22:45 Enema [RC] ASDIRECTED - Assessment/Plan Last 24 Hours: My Active Orders 02/27/21 21:52 Sodium Chloride 0.9% [Saline Flush] 10 ml FLUSH ASDIRECTED PRN Saline Lock Insert [OM.PC] Routine 02/27/21 22:15 Iopamidol [Isovue-300 (61%)] 100 ml IV . DIRECTED Sodium Chloride 0.9% [Normal Saline] 80 ml IV ASDIRECTED 02/27/21 22:45 Enema [RC] ASDIRECTED
--- NOTE | 2021-02-27 23:36 | CRLCT ---
Indication: Abdominal pain, history of gastric bypass Technique: Contrast enhanced axial CT imaging through the abdomen and pelvis. 100 mL Isovue-300 contrast agent was administered intravenously. Sagittal and coronal reconstructions are provided. Comparison: CT abdomen and pelvis with contrast 02/20/2021 Findings: The colon is diffusely distended with a large amount of fecal material seen throughout, suggesting obstipation. There is no colonic wall thickening. Although distal small bowel is mildly distended, likely secondary to colonic obstruction. Small bowel-small bowel intussusception involving approximately 6 cm segment is noted in the anterior lower abdomen. There is no evidence of proximal small-bowel obstruction. Chung-en-Y gastric bypass changes are noted. No abnormalities are demonstrated relating to the liver, gallbladder, spleen, pancreas, adrenal glands, and kidneys. The portal vein is patent. The abdominal aorta is normal in caliber. There is no abdominal lymphadenopathy. Instrumented posterior fusion is again demonstrated at L4 through S1. The osseous structures are otherwise unremarkable. The included lung bases are clear. Impression: 1. Large colonic stool load throughout, suggesting obstipation. Mild secondary distention of the distal small bowel. 2. Small bowel-small bowel intussusception involving an approximately 6 cm segment in the anterior lower abdomen. No evidence of proximal obstruction. Please note that all CT scans at this facility use dose modulation, iterative reconstruction, and/or weight-based dosing when appropriate to reduce radiation dose to as low as reasonably achievable. Dictated by Neli Gay MD @ Feb 27 2021 11:25PM Signed by Dr. Neli Gay @ Feb 27 2021 11:35PM
[2021-02-27] MEDS ORDERED: HYDROmorphone 0.5 MG/0.5 ML Syringe IVPUSH ONE (23:48)
[2021-02-28] MEDS: Dextrose 5%-Lactated Ringers 1,000 ML IV SCH ×4 (00:55→22:36)
[2021-02-28] MEDS: HYDROmorphone 1 MG/ML Syringe IV PRN ×3 (01:08→08:46)
[2021-02-28] MEDS: Ondansetron 4 MG/2 ML SDV IVPUSH PRN ×2 (03:17→08:47)
[2021-02-28] MEDS ORDERED: Metoclopramide 10 MG/2 ML SDV IV ONE (06:19)
[2021-02-28] MEDS ORDERED: Meropenem 500 MG SDV ONE (07:27)
[2021-02-28] MEDS ORDERED: Bupivacaine 0.5% 50 ML MDV ONE (07:27)
[2021-02-28] MEDS ORDERED: Lidocaine 1% with EPINEPHrine 1:100,000 50 ML MDV ONE (07:28)
[2021-02-28] MEDS ORDERED: Non-Formulary Medication 1 Each IV ONE ×2 (07:37)
[2021-02-28] MEDS ORDERED: Ketamine 500 MG/5 ML MDV IV SCH ×3 (07:45→10:30)
--- NOTE | 2021-02-28 07:57 | PCM.HP.2 ---
H&P History of Present Illness - General Date of Service: 02/28/21 Admit Problem/Dx: Admission Diagnosis/Problem Admission Diagnosis/Problem Intussusception of small intestine Source of Information: Patient History Limitations: Reports: No Limitations - History of Present Illness Initial Comments - Free Text/Narative: Vanessa was hospitalized for abdominal pain and constipation last week. She states that her abdominal pain really never went away. last night her pain increased and she was nauseated so came to the ED and was admitted to the hospital for an intussusception at the jejunojejunostomy. Onset of Symptoms: Reports: Gradual Duration of Symptoms: Reports: Week(s):, Chronic (constipation) Location: Reports: Abdomen Quality: Reports: Pressure, Sharp, Stabbing Severity: Moderate Improves with: Reports: None Worsens with: Reports: None Associated Symptoms: Reports: Headaches, Nausea/Vomiting Upper Abdomen Pain Score (Numeric/FACES): 6 - Related Data Allergies/Adverse Reactions: Allergies Allergy/AdvReac Type Severity Reaction Status Date / Time No Known Allergies Allergy Verified 02/27/21 21:31 Home Medications: Home Meds Cyclobenzaprine [Flexeril] 10 mg PO TID 01/19/15 [History] Gabapentin [Neurontin] 1,200 mg PO TID 01/19/15 [History] Cholecalciferol (Vitamin D3) [Vitamin D3] 1,000 unit PO DAILY 01/23/15 [History] Cyanocobalamin (Vitamin B-12) [Vitamin B-12] 1,000 mcg PO DAILY 01/23/15 [History] Ped Multivit 43/Iron Fumarate [Flintstones Complete Chew Tab] 1 tab PO BID 01/23/15 [History] Vitamin B Complex 1 each PO DAILY 01/23/15 [History] polyethylene glycoL 3350 [MiraLAX] 119 gm PO ONETIME #119 gm 09/07/20 [Rx] Azithromycin [Zithromax] 125 mg PO BID #30 tablet 02/22/21 [Rx] polyethylene glycoL 3350 [MiraLAX] 34 gm PO DAILY #60 packet 02/22/21 [Rx] Past Medical History HEENT History: Reports: None Respiratory History: Reports: Sleep Apnea Gastrointestinal History: Reports: Bowel Obstruction [employer] History: Reports: Musculoskeletal History: Reports: Back Pain, Chronic Neurological History: Reports: Migraines Psychiatric History: Reports: Anxiety Endocrine/Metabolic History: Reports: Obesity/BMI 30+ - Infectious Disease History Infectious Disease History: Reports: Chicken Pox - Past Surgical History HEENT Surgical History: Reports: Tonsillectomy GI Surgical History: Reports: Bariatric Procedure, Esophageal Dilatation, Hernia, Abdominal, Lysis of Adhesions Other GI Surgeries/Procedures: "last january" Neurological Surgical History: Reports: Spinal Fusion Other Neurological Surgeries/Procedures: L4-S1 Other Musculoskeletal Surgeries/Procedures:: back surgery Social & Family History - Family History Cardiac: Reports: High Cholesterol, Hypertension Neurological: Reports: CVA - Tobacco Use Tobacco Use Status *Q: Current Every Day Tobacco User Years of Tobacco use: 15 Packs/Tins Daily: 0.5 Used Tobacco, but Quit: No Second Hand Smoke Exposure: No - Caffeine Use Caffeine Use: Reports: Coffee, Soda Other Caffeine Use: 3 cans a day soda, 2 cups of coffee a day - Recreational Drug Use Recreational Drug Use: No - Living Situation & Occupation Living situation: Reports: Single, Alone 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 has two adult children.) H&P Review of Systems - Review of Systems: Review Of Systems: See Below General: Reports: Fatigue, Decreased Appetite HEENT: Reports: No Symptoms Pulmonary: Reports: No Symptoms Cardiovascular: Reports: No Symptoms Gastrointestinal: Reports: Abdominal Pain, Constipation, Decreased Appetite, Distension, Nausea, Vomiting Genitourinary: Reports: No Symptoms Musculoskeletal: Reports: No Symptoms Skin: Reports: No Symptoms Psychiatric: Reports: No Symptoms Neurological: Reports: Headache (and neck pain ) Hematologic/Lymphatic: Reports: No Symptoms Immunologic: Reports: No Symptoms Exam - Exam Exam: See Below - Vital Signs Vital Signs: Last Vital Signs Temp 97.1 F 02/28/21 07:42 Pulse 94 02/28/21 07:42 Resp 16 02/28/21 07:28 BP 113/60 02/28/21 07:42 Pulse Ox 94 L 02/28/21 07:42 Weight: 152 lb 8 oz - Exam Quality Assessment: DVT Prophylaxis General: Alert, Oriented, Cooperative, Mild Distress HEENT: PERRLA Neck: Supple, Trachea Midline Lungs: Clear to Auscultation, Normal Respiratory Effort Cardiovascular: Regular Rate, Regular Rhythm GI/Abdominal Exam: Distended, Guarding, Tender (Female) Exam: Deferred Rectal (Female) Exam: Deferred Back Exam: Normal Inspection, Full Range of Motion Extremities: Normal Inspection, Normal Range of Motion Skin: Warm, Dry, Intact Neurological: Cranial Nerves Intact, Reflexes Equal Bilateral Neuro Extensive - Mental Status: Alert, Oriented x3, Normal Mood/Affect Neuro Extensive - Motor, Sensory, Reflexes: CN II-XII Intact Psychiatric: Alert, Normal Affect, Normal Mood - Patient Data Lab Results Last 24 hrs: Laboratory Results - last 24 hr 02/27/21 02/27/21 Range/Units 22:11 22:11 WBC 9.0 (4.5-11.0) K/uL RBC 3.99 (3.30-5.50) M/uL Hgb 11.9 L (12.0-15.0) g/dL Hct 37.8 (36.0-48.0) % MCV 95 (80-98) fL MCH 30 (27-31) pg MCHC 32 (32-36) % Plt Count 326 (150-400) K/uL Sodium 148 (140-148) mmol/L Potassium 3.9 (3.6-5.2) mmol/L Chloride 107 (100-108) mmol/L Carbon Dioxide 27 (21-32) mmol/L Anion Gap 14.0 (5.0-14.0) mmol/L BUN 13 D (7-18) mg/dL Creatinine 0.6 (0.6-1.0) mg/dL Est Cr Clr Drug Dosing 97.95 mL/min Estimated GFR (MDRD) > 60 (>60) Glucose 90 (74-106) mg/dL Calcium 8.9 (8.5-10.1) mg/dL C-Reactive Protein < 0.05 (0.0-0.3) mg/dL Result Diagrams: 02/27/21 22:11 02/27/21 22:11 Sepsis Event Note - Evaluation Sepsis Screening Result: No Definite Risk - Focused Exam Vital Signs: Vital Signs Temp Temp Pulse Resp BP BP Pulse Ox 02/28/21 07:42 97.1 F 94 113/60 94 L 02/28/21 07:28 96.1 F L 78 16 100/67 78 L 02/28/21 03:12 96.2 F L 74 14 109/69 98 02/28/21 00:42 96.1 F L 76 14 117/76 100 02/27/21 23:30 85 125/90 02/27/21 21:37 97.6 F 94 16 128/84 99 02/27/21 21:31 97.6 F 94 16 128/84 99 - Problem List (1) Intussusception SNOMED Code(s): 26886376 ICD Code: K56.1 - INTUSSUSCEPTION Status: Acute Current Visit: Yes (2) Chronic constipation SNOMED Code(s): 521288067 ICD Code: K59.09 - OTHER CONSTIPATION Status: Acute Current Visit: No Problem List Initiated/Reviewed/Updated: Yes Orders Last 24hrs: Active Orders 24 hr Category Date Time Assessment/Plan Comment:: Assessment: Intussusception of the Jejunojejunostomy Chronic Constipation Plan: Schedule: Exploratory Laparotomy with Revision of Jejunojejunostomy - 02/28/2021 - Case to Follow- General Anesthesia Tap Block, ketamine Bolus and gtt, Magnesium Bolus and gtt - NPO Ashvin Rodriguez MD Cefoxitin 2 Gms IV certified personal chef to OR. NPO May have Gabapentin and Flexeril with a sip of water right away this am Check Ferritin on the blood drawn earlier. Kassie Jett 02/28/2021 - Mortality Measure Prognosis:: Good
[2021-02-28] MEDS: Gabapentin 400 MG Cap PO SCH ×3 (08:39→20:50)
[2021-02-28] MEDS ORDERED: Cyclobenzaprine 10 MG Tab PO SCH (09:00)
[2021-02-28] MEDS ORDERED: fentaNYL 250 MCG/5 ML SDV ONE ×2 (09:12→11:12)
[2021-02-28] MEDS ORDERED: Ondansetron 4 MG/2 ML SDV ONE (09:13)
[2021-02-28] MEDS ORDERED: Dexamethasone 4 MG/ML SDV ONE (09:13)
[2021-02-28] MEDS ORDERED: Propofol 200 MG/20 ML SDV ONE (09:13)
[2021-02-28] MEDS ORDERED: Glycopyrrolate 0.2 MG/ML 5 ML MDV ONE (09:13)
[2021-02-28] MEDS ORDERED: Succinylcholine 200 MG/10 ML MDV ONE (09:13)
[2021-02-28] MEDS ORDERED: Neostigmine Methylsulfate 1 MG/ML 5 ML Syringe ONE (09:13)
[2021-02-28] MEDS ORDERED: Rocuronium 50 MG/5 ML Vial ONE (09:13)
[2021-02-28] MEDS ORDERED: cefOXitin 2 GM in Sodium Chloride 0.9% 50 ML IV ONE (10:00)
[2021-02-28] MEDS ORDERED: Ropivacaine 34 ML, dexAMETHasone 8 MG, EPINEPHrine 0.4 MG, Sodium Chloride 0.9% 43.6 ML NERVRT SCH ×4 (10:00)
[2021-02-28] MEDS ORDERED: Metoclopramide 10 MG/2 ML SDV IV SCH (10:00)
[2021-02-28] MEDS ORDERED: Magnesium Sulfate 2 GM in Sodium Chloride 0.9% 100 ML IV SCH (10:30)
[2021-02-28] MEDS ORDERED: Ketamine 50 MG in Sodium Chloride 0.9% 49.5 ML IV SCH (10:30)
[2021-02-28 10:50] LABS: CORONAVIRUS COVID-19 NAA NEGATIVE (NEGATIVE)
[2021-02-28] MEDS ORDERED: Naloxone 0.4 MG/ML SDV IVPUSH PRN (10:52)
[2021-02-28] MEDS ORDERED: HYDROmorphone/Normal Saline 15 MG/30 ML PCA IV PRN (10:52)
[2021-02-28] MEDS ORDERED: Magnesium Sulfate 2.2 GM in Sodium Chloride 0.9% 250 ML IV ONE (11:00)
[2021-02-28] MEDS ORDERED: diphenhydrAMINE 50 MG/ML SDV IVPUSH PRN (14:00)
[2021-02-28] MEDS ORDERED: Labetalol 20 MG/4 ML Syringe IVPUSH PRN (14:00)
[2021-02-28] MEDS ORDERED: traMADol 50 MG Tab PO PRN (14:00)
[2021-02-28] MEDS ORDERED: Ondansetron 4 MG/2 ML SDV IVPUSH PRN (14:00)
[2021-02-28] MEDS ORDERED: Acetaminophen 500 MG Tab PO PRN (14:00)
[2021-02-28] MEDS ORDERED: Calcium Gluconate 10% 1 GM/10 ML SDV IVPUSH PRN (14:00)
[2021-02-28] MEDS: Nicotine 14 MG/24 Hr Patch TRDERM SCH (14:02)
[2021-02-28] MEDS: hydrOXYzine HCL 100 MG/2 ML SDV IM PRN (14:04)
[2021-02-28] MEDS: Acetaminophen 500 MG Tab PO SCH ×2 (15:09→20:59)
[2021-02-28] MEDS ORDERED: Pantoprazole 40 MG Vial IVPUSH SCH (16:00)
[2021-02-28] MEDS ORDERED: MVI, Adult with Vitamin K 10 ML, Thiamine 200 MG, Zinc/Copper/Manganese/Selenium 1 ML i... IV SCH ×4 (16:00)
[2021-02-28] MEDS: cefOXitin 2 GM in Sodium Chloride 0.9% 50 ML IV SCH ×2 (16:51→22:37)
[2021-02-28] MEDS: Heparin Sodium 5,000 Units/ML Vial SUBCUT SCH (17:09)
[2021-03-01] MEDS ORDERED: Iopamidol 612 MG/ML 50 ML SDV PO PRN (01:08)
[2021-03-01] MEDS: cefOXitin 2 GM in Sodium Chloride 0.9% 50 ML IV SCH ×2 (04:37→10:01)
[2021-03-01] MEDS: Dextrose 5%-Lactated Ringers 1,000 ML IV SCH ×2 (04:39→12:37)
[2021-03-01] MEDS: Acetaminophen 500 MG Tab PO SCH ×3 (05:44→22:26)
[2021-03-01] MEDS: Heparin Sodium 5,000 Units/ML Vial SUBCUT SCH ×2 (05:45→18:12)
[2021-03-01] MEDS ORDERED: Ondansetron 4 MG Tab.DIS PO PRN (07:17)
[2021-03-01] MEDS ORDERED: Promethazine 25 MG Tab PO PRN (07:24)
--- NOTE | 2021-03-01 07:58 | PN ---
DATE OF SERVICE: 03/01/2021 SUBJECTIVE: Vanessa is postoperative day #1. 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 Vital signs are stable. Oral intake 1090. On a step 1 gastric bypass diet. [place] was discontinued. She had 1275 out of her [place] and has voided 475. REVIEW OF SYSTEMS: Remainder of review of systems negative for any pertinent positives and negatives. OBJECTIVE: GENERAL: Vanessa White is a pleasant 45-year-old female. VITAL SIGNS: TPR is 98.2, 84, 16, blood pressure 110/58. HEENT: Negative. NECK: Supple. HEART: Regular rate and rhythm. LUNGS: Clear. ABDOMEN: Dressings dry and intact. Abdominal binder is on. EXTREMITIES: Without peripheral edema. ASSESSMENT: Exploratory laparotomy with: 1. Reduction of small bowel volvulus. 2. Small-bowel resection. 3. Separate enteroenterostomy to restore small bowel Chung-en-Y anatomy. 4. Separate bowel strictureplasty. 5. Resection of peritoneal implant. 6. Placement of Interceed mesh. POSTOPERATIVE DIAGNOSES: Partial small bowel obstruction secondary to: 1. Small bowel volvulus. 2. Intussusception of the jejunojejunostomy. 3. Peritoneal implant abdominal wall to small bowel 11.5 cm total. 4. Separate stricture at previous small bowel anastomosis. 5. Date of procedure: 02/28/2021. Surgeon: Ashvin Rodriguez MD. PLAN: 1. Decrease IV to 100 mL per hour. 2. Saline lock if oral intake adequate 500 mL and tolerating it well. 3. Step 2 gastric bypass diet without cereal. 4. Discontinue INDUSTRIAL HYGIENE MANAGER. 5. Senna S two at bedtime. 6. Dulcolax 10 mg oral t.i.d. 7. May have coffee with creamer and sugars per what she does at home, okayed by Dr. Rodriguez. 8. Discontinue Zofran due to severe interaction with Zithromax which she takes for gastroparesis. 9. Phenergan 25 mg p.o. q.4 hours p.r.n. nausea and vomiting. 10.Continue use of incentive spirometer and ambulation. 11.We will evaluate p.r.n. or in a.m. Kassie Clark PA-C /[id number]
[2021-03-01] MEDS: oxyCODONE 5 MG Tab PO PRN ×3 (08:21→20:22)
[2021-03-01] MEDS: Nicotine 14 MG/24 Hr Patch TRDERM SCH (08:22)
[2021-03-01] MEDS: Bisacodyl 5 MG Tab PO SCH ×2 (08:22→20:22)
[2021-03-01] MEDS: Azithromycin 250 MG Tab PO SCH ×2 (08:23→20:22)
[2021-03-01] MEDS: Gabapentin 400 MG Cap PO SCH ×3 (08:23→20:22)
[2021-03-01] MEDS: Celecoxib 200 MG Cap PO SCH ×2 (08:25→20:22)
[2021-03-01] MEDS: Cyclobenzaprine 10 MG Tab PO PRN ×2 (10:05→18:18)
[2021-03-01] MEDS: Pantoprazole 40 MG Tab.CR PO SCH (11:19)
[2021-03-01] MEDS ORDERED: MVI, Adult with Vitamin K 10 ML, Thiamine 200 MG, Zinc/Copper/Manganese/Selenium 1 ML i... IV SCH ×4 (16:00)
[2021-03-01] MEDS: Metoclopramide 10 MG/2 ML SDV IVPUSH PRN (22:02)
[2021-03-02] MEDS: Dextrose 5%-Lactated Ringers 1,000 ML IV SCH (02:06)
[2021-03-02] MEDS: Heparin Sodium 5,000 Units/ML Vial SUBCUT SCH ×2 (05:29→17:34)
[2021-03-02] MEDS: Acetaminophen 500 MG Tab PO SCH ×3 (05:29→21:37)
[2021-03-02] MEDS ORDERED: Magnesium Hydroxide 400 MG/5 ML Susp 30 ML Cup PO PRN (08:05)
[2021-03-02] MEDS: Cyclobenzaprine 10 MG Tab PO PRN ×2 (08:16→20:46)
[2021-03-02] MEDS: oxyCODONE 5 MG Tab PO PRN ×2 (08:17→15:24)
[2021-03-02] MEDS: Pantoprazole 40 MG Tab.CR PO SCH (08:20)
[2021-03-02] MEDS ORDERED: Cyanocobalamin (Vitamin B12) 1,000 MCG/ML SDV IM ONE (09:00)
[2021-03-02] MEDS ORDERED: Magnesium Hydroxide 400 MG/5 ML Susp 30 ML Cup PO ONE (09:00)
[2021-03-02] MEDS: Nicotine 14 MG/24 Hr Patch TRDERM SCH (10:06)
[2021-03-02] MEDS: Celecoxib 200 MG Cap PO SCH ×2 (10:07→20:44)
[2021-03-02] MEDS: Bisacodyl 5 MG Tab PO SCH ×2 (10:07→20:45)
[2021-03-02] MEDS: Gabapentin 400 MG Cap PO SCH ×3 (10:08→20:45)
[2021-03-02] MEDS: Azithromycin 250 MG Tab PO SCH ×2 (10:11→20:45)
[2021-03-02] MEDS: Metoclopramide 10 MG/2 ML SDV IVPUSH PRN (13:13)
[2021-03-03] MEDS: oxyCODONE 5 MG Tab PO PRN ×2 (00:07→06:52)
[2021-03-03] MEDS: hydrOXYzine HCL 100 MG/2 ML SDV IM PRN (00:08)
[2021-03-03] MEDS: Acetaminophen 500 MG Tab PO SCH (05:00)
[2021-03-03] MEDS: Cyclobenzaprine 10 MG Tab PO PRN (05:04)
[2021-03-03] MEDS: Heparin Sodium 5,000 Units/ML Vial SUBCUT SCH (05:04)
[2021-03-03] MEDS: Metoclopramide 10 MG/2 ML SDV IVPUSH PRN (05:05)
[2021-03-03] MEDS: Pantoprazole 40 MG Tab.CR PO SCH (07:56)
[2021-03-03 08:38] VITALS: BP 129/81; PULSE 89
[2021-03-03] MEDS: Bisacodyl 5 MG Tab PO SCH (08:48)
[2021-03-03] MEDS: Celecoxib 200 MG Cap PO SCH (08:48)
[2021-03-03] MEDS: Nicotine 14 MG/24 Hr Patch TRDERM SCH (08:49)
[2021-03-03] MEDS: Gabapentin 400 MG Cap PO SCH (08:50)
[2021-03-03] MEDS: Azithromycin 250 MG Tab PO SCH (08:51)
--- NOTE | 2021-03-04 09:45 | CR ---
UGI Limited HISTORY: Postbariatric surgery FINDINGS: Patient swallowed water-soluble contrast. Upright views of the abdomen show no evidence of extravasation or obstruction. IMPRESSION: Status post bariatric surgery No extravasation or obstruction seen
--- NOTE | 2021-03-04 12:21 | OR ---
DATE OF PROCEDURE: 02/28/2021 SURGEON: Ashvin Rodriguez MD PREOPERATIVE DIAGNOSIS: Partial small bowel obstruction, likely associated with intussusception. POSTOPERATIVE DIAGNOSES: 1. Partial small bowel obstruction secondary to: a. Small bowel volvulus. b. Intussusception at jejunojejunostomy. 2. Peritoneal implant from abdominal wall extending on to small bowel adjacent to jejunojejunostomy (11.5 cm in length). 3. Separate stricture at previous small bowel anastomosis. OPERATIVE PROCEDURES: Exploratory laparotomy with: 1. Reduction of small bowel volvulus and closure of internal hernia (05143). 2. Small bowel resection (42227). 3. Separate enteroenterostomy for mandaeism of small bowel Chung-en-Y anatomy (85757). 4. Separate small bowel stricturoplasty (81003). 5. Resection of peritoneal nodule extending from the abdominal wall onto subjacent small bowel (34605). 6. Placement of Interceed mesh underneath the abdominal and pelvic wall to limit recurrent adhesion formation with underlying viscera (63738). ANESTHESIA: General. HAND GLOVE CLEANER: Kassie Clark PA-C. INDICATIONS FOR PROCEDURE: This is a 45-year-old status post previous Chung-en-Y gastric bypass and previous bowel obstructions, presenting once again with a picture of small bowel obstruction. CT scan obtained during the night showed an area of intussusception which appeared be in the vicinity of the previous jejunojejunostomy. Plan is to proceed with an exploratory laparotomy with reduction of volvulus and lysis of adhesions as indicated, as well as small-bowel resection or reconstruction as needed. Potential risks including bleeding, infection, leaks from various GI tract closures, problems with the problem recurring overtime were all reviewed, and the patient wishes to proceed. DETAILS OF PROCEDURE: The patient was taken to the operating room. After general endotracheal anesthesia was induced, a [place] catheter was inserted, and the abdomen prepped and draped. The previous upper midline incision was made and carried down through the skin, subcutaneous tissue, then down to the level of the linea alba. The fascia was divided in the midline, peritoneal cavity entered. There were in general not much in the way of adhesions between the omentum and abdominal wall. There was elongated peritoneal implant extending from the anterior abdominal wall near the superior end of the previous incision which had been tracked down along the small bowel. This was excised and total length measured 11.5 cm. Examination of the small bowel showed narrow small bowel volvulus with portion of the Chung limb rotating underneath the mesentery of the Chung limb from a right to left direction. The bowel in this area was somewhat dusky in terms of venous congestion and this did pink up after this was reduced, the underlying mesenteric defect at that point was then closed with a 2-0 silk stitch. At the area of the enterostomy, the patient was noted to have some markedly thickened small bowel. This involved the previous jejunojejunostomy and was in addition to being edematous appeared to be somewhat strictured at that anastomosis, and decision was made to resect and reconstruct that anastomosis. The three components were divided with KAVITA coughlin loads as was the underlying mesentery. GI tract continuity was additionally initiated with anastomosis between what had been the distal most biliopancreatic limb to the proximal-most common limb with a [id number] enteroenterostomy with internal firing of the Endo-KAVITA 60 mm stapler. Common opening was closed transversely with a KAVITA stapler as well and the angles anastomosed and mesenteric defect approximated with some 3-0 Vicryl and 2-0 silk stitch respectively. The Chung-en-Y anatomy was then reconstructed with some anastomosis between what had been the distal most Chung limb to a point around 20 cm distal to the first anastomosis, i.e. there was no significant change in the limb lengths in this case as the patient achieved adequate weight loss on the same sequences of anastomosis and closure of the angles anastomosed and mesenteric defect was constructed, and at that point that newly reconstructed Chung-en-Y anatomy appeared to be satisfactory. In a somewhat more proximal site where there had been a previous enteroenterostomy that appeared to be somewhat edematous and strictured as well, stricturoplasty was accomplished with opening of the antimesenteric border of that junction and internal firing of the KAVITA 60 mm stapler followed by a 30 mm stapler. Common opening was closed transversely with the KAVITA stapler as well. The angles anastomosed were reinforced with some 3-0 Vicryl stitch and in this case there was no mesenteric defect. The abdomen was then irrigated with antibiotic-containing saline solution. Interceed mesh was placed underneath the incision from there down towards the pelvis to limit recurrent adhesion formation between those surfaces and the underlying viscera. Bilateral transversus abdominis plane blocks at that point had been placed and the fascia was anesthetized with 1% lidocaine mixed with Marcaine. Fascial closure was then accomplished with a #2 Vicryl stitch, subcutaneous tissue with 2 layers of 3-0 and 4-0 Vicryl stitch, and the skin with chito. Dressing was applied. The patient was taken to the recovery room in satisfactory condition. Physician embalmer assistant, Kassie Clark, played an essential role in assisting in this case, helping to position the patient, retract structures as needed, as well as suturing and cutting sutures when indicated. Her presence improved patient safety and decreased operative time. Ashvin Rodriguez MD /[id number]
--- NOTE | 2021-03-04 13:12 | DISCH ---
FINAL DIAGNOSES: 1. Partial small bowel obstruction secondary to: a. Small bowel volvulus and intussusception jejunojejunostomy. 2. Peritoneal implant of abdominal wall extending into the small bowel. 3. Separate stricture at the previous small bowel anastomosis. Secondary procedure is bariatric surgery status. 4. History of previous bowel obstructions. 5. Chronic obstipation. 6. History of smoking. OPERATIVE PROCEDURE: Done on 02/28/2021, exploratory laparotomy with: 1. Reduction of small bowel volvulus. 2. Small bowel resection. 3. Separate enteroenterostomy to restore small bowel Chung-en-Y anatomy. 4. Separate small bowel stricturoplasty. 5. Excision of peritoneal implant and half placement of Interceed mesh to limit recurrent adhesion formation. SUMMARY: This is a 45-year-old female presenting with recurrent small bowel obstruction. She currently has some obstipation and has recently been admitted for that which resolved, but now presented with more obvious small bowel obstruction on CT scan. She was underwent the above exploration with the above findings and procedures being completed. Postoperatively, at this point she is tolerating a step-4 diet and she will be sent home on usual medications plus oxycodone 5 mg p.o. q.6 hours p.r.n. pain #40, Celebrex 200 mg p.o. b.i.d. x10 days, Tylenol 1 g q.8 hours p.r.n. pain. She also is passing gas, but has not moved her bowels yet. She is instructed she can take extra doses of MiraLax at higher doses such as 7 scoops at a time if needed for initiation of bowel function, otherwise should remain on Zithromax to augment GI tract motility. Follow up with Kassie Clark at [facility] on 03/11/2021 at 11:30 a.m. /[id number]
--- NOTE | 2021-03-04 13:18 | PN ---
DATE OF SERVICE: 03/02/2021 The patient has been afebrile with stable vital signs. Still somewhat uncomfortable. Continue one more day in the hospital, work on getting her bowels started, and she will likely be ready for discharge home tomorrow. Ashvin Rodriguez MD /[id number]
== END 2021-03-03 10:14 | disposition home or self-care (01) | DRG 220 ==
LOC: JP.ED 21:19 → JP.MS 02-28 00:03
PROVIDERS: ADMIT Surgery; ATTEND Surgery
PROC: 0DS80ZZ Reposition Small Intestine, Open Approach (ICD-10-PCS; principal; 2021-02-28)
PROC: 0D160ZA Bypass Stomach to Jejunum, Open Approach (ICD-10-PCS; 2021-02-28)
PROC: 0DB80ZZ Excision of Small Intestine, Open Approach (ICD-10-PCS; 2021-02-28)
PROC: 0DBW0ZZ Excision of Peritoneum, Open Approach (ICD-10-PCS; 2021-02-28)
PROC: 3E0M05Z Introduction of Adhesion Barrier into Peritoneal Cavity, Open Approach (ICD-10-PCS; 2021-02-28)
DX: K95.89 Other complications of other bariatric procedure (principal); Y83.8 Other surgical procedures as the cause of abnormal reaction of the patient, or of later complication, without mention of misadventure at the time of the procedure; K56.600 Partial intestinal obstruction, unspecified as to cause; K56.1 Intussusception; K56.2 Volvulus; F17.210 Nicotine dependence, cigarettes, uncomplicated; K59.09 Other constipation; Z79.899 Other long term (current) drug therapy; G47.30 Sleep apnea, unspecified; G89.29 Other chronic pain; M54.9 Dorsalgia, unspecified; G43.909 Migraine, unspecified, not intractable, without status migrainosus; F41.9 Anxiety disorder, unspecified; E66.9 Obesity, unspecified; Z90.89 Acquired absence of other organs; Z98.84 Bariatric surgery status; Z98.1 Arthrodesis status; Z98.890 Other specified postprocedural states; Z68.27 Body mass index [BMI] 27.0-27.9, adult; Z20.822 Contact with and (suspected) exposure to COVID-19
CPT/HCPCS: 0241U; 36415; 74177; 74240; 74240-26; 80048; 80053; 82728; 83735; 83880; 84100; 85025; 85027; 86140; 88305; 88307; 88341; 88342; 93005; 94762; 96374; 99285-25; A9270-GY; C9113; J0171; J0330; J0694; J1100; J1170; J1644; J2185; J2405; J2704; J2710; J2765; J2795; J3010; J3410; J3411; J3420; J3475; J3490; J7050; J7121; Q9967

== ENCOUNTER 2021-06-24 08:40 | Inpatient (IN) | payer BC, MEDICAID, MEDICARE, OTHER ==
[2021-06-24] MEDS ORDERED: Ondansetron 4 MG/2 ML SDV IVPUSH ONE (09:04)
[2021-06-24] MEDS ORDERED: Sodium Chloride 0.9% 1,000 ML IV ONE (09:04)
[2021-06-24] MEDS ORDERED: HYDROmorphone 0.5 MG/0.5 ML Syringe IVPUSH ONE ×2 (09:04→10:11)
--- NOTE | 2021-06-24 09:06 | EDM.PDOC ---
ED HPI GENERAL MEDICAL PROBLEM - General Chief Complaint: Abdominal Pain Stated Complaint: POSSIBLE BLOCKED INTESTINE Time Seen by Provider: 06/24/21 08:57 Source of Information: Reports: Patient, Family History Limitations: Reports: No Limitations - History of Present Illness INITIAL COMMENTS - FREE TEXT/NARRATIVE: 45-year-old female who had a gastric bypass several years ago, has had some problems with some recurring bowel obstructions over the past year. She had been doing well for the past 2 months but the last 24 hours she has developed upper abdominal pain, very intense, nausea and vomiting and cannot even "drink water". No pain radiating to the back. No bowel movement for the last 2 days, no fever or chills. It feels very similar to past bowel obstructions. No significant distention. Onset: Gradual Duration: Hour(s): (24 to 36 hours) Location: Reports: Abdomen (Especially upper abdomen) Abdomen Pain Score (Numeric/FACES): 9 - Related Data Allergies Allergy/AdvReac Type Severity Reaction Status Date / Time No Known Allergies Allergy Verified 06/24/21 12:05 Home Meds: Home Meds Cyclobenzaprine [Flexeril] 10 mg PO TID 01/19/15 [History] Gabapentin [Neurontin] 1,200 mg PO TID 01/19/15 [History] Cholecalciferol (Vitamin D3) [Vitamin D3] 1,000 unit PO DAILY 01/23/15 [History] Cyanocobalamin (Vitamin B-12) [Vitamin B-12] 1,000 mcg PO DAILY 01/23/15 [History] Ped Multivit 43/Iron Fumarate [Flintstones Complete Chew Tab] 1 tab PO BID 01/23/15 [History] Vitamin B Complex 1 each PO DAILY 01/23/15 [History] polyethylene glycoL 3350 [MiraLAX] 34 gm PO DAILY #60 packet 02/22/21 [Rx] Past Medical History HEENT History: Reports: None Respiratory History: Reports: Sleep Apnea Gastrointestinal History: Reports: Bowel Obstruction HIDE OR SKIN BUFFER History: Reports: Musculoskeletal History: Reports: Back Pain, Chronic Neurological History: Reports: Migraines Psychiatric History: Reports: Anxiety Endocrine/Metabolic History: Reports: Obesity/BMI 30+ - Infectious Disease History Infectious Disease History: Reports: Chicken Pox - Past Surgical History HEENT Surgical History: Reports: Tonsillectomy GI Surgical History: Reports: Bariatric Procedure, Esophageal Dilatation, Hernia, Abdominal, Lysis of Adhesions Other GI Surgeries/Procedures: "last january" Neurological Surgical History: Reports: Spinal Fusion Other Neurological Surgeries/Procedures: L4-S1 Other Musculoskeletal Surgeries/Procedures:: back surgery Social & Family History - Family History Cardiac: Reports: High Cholesterol, Hypertension Neurological: Reports: CVA - Tobacco Use Tobacco Use Status *Q: Current Every Day Tobacco User Years of Tobacco use: 20 Packs/Tins Daily: 0.5 - Caffeine Use Caffeine Use: Reports: Coffee, Tea Other Caffeine Use: 3 cans a day soda, 2 cups of coffee a day - Recreational Drug Use Recreational Drug Use: No - Living Situation & Occupation Living situation: Reports: Single, Alone 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 has two adult children.) ED ROS GENERAL - Review of Systems Review Of Systems: See Below Constitutional: Reports: Malaise. Denies: Fever, Chills HEENT: Reports: No Symptoms Respiratory: Denies: Shortness of Breath Cardiovascular: Denies: Chest Pain GI/Abdominal: Reports: Abdominal Pain, Nausea, Vomiting Skin: Reports: No Symptoms Neurological: Reports: No Symptoms Psychiatric: Reports: Anxiety ED EXAM, GI/ABD - Physical Exam Exam: See Below Exam Limited By: No Limitations General Appearance: Alert, Moderate Distress (Looks fairly uncomfortable) Eyes: Bilateral: Normal Appearance (No jaundice, good hydration) Head: Atraumatic Neck: Normal Inspection Respiratory/Chest: Lungs Clear Cardiovascular: Regular Rate, Rhythm. No: Tachycardia GI/Abdominal Exam: Tender (No distention but significantly tender to even light palpation across the left lower quadrant and entire upper abdomen), Abnormal Bowel Sounds (Very hypoactive bowel sounds). No: Distended Extremities: Other (Scattered bruising is present on the lower extremities) Neurological: Alert, Oriented Psychiatric: Anxious Course - Vital Signs Last Recorded V/S: Last Vital Signs Temp 93.7 F L 06/24/21 14:25 Pulse 73 06/24/21 14:25 Resp 16 06/24/21 14:25 BP 102/71 06/24/21 14:25 Pulse Ox 98 06/24/21 14:25 - Orders/Labs/Meds Orders: Medication Orders Acetaminophen (Acetaminophen 325 Mg Tab) 650 mg PO Q6H PRN PRN Reason: Pain/Fever Cyclobenzaprine HCl (Cyclobenzaprine 10 Mg Tab) 10 mg PO TID [facility] Last Admin: 06/24/21 14:21 Dose: 10 mg Documented by: CONRADO Diphenhydramine HCl (Diphenhydramine 50 Mg/Ml Sdv) 25 mg IVPUSH Q6H PRN PRN Reason: Itching Diphenhydramine HCl (Diphenhydramine 25 Mg Cap) 25 mg PO Q6H PRN PRN Reason: Itching Gabapentin (Gabapentin 400 Mg Cap) 1,200 mg PO TID [facility] Last Admin: 06/24/21 14:22 Dose: 1,200 mg Documented by: CONRADO Hydromorphone HCl (Hydromorphone/Normal Saline 15 Mg/30 Ml Piping Design Specialist) 0 mg IV ASDIRECTED PRN; Protocol PRN Reason: PAIN Last Admin: 06/24/21 12:29 Dose: 15 mg Documented by: CONRADO Dextrose/Lactated Ringer's (Dextrose 5%-Lactated Ringers) 1,000 mls @ 125 mls/hr IV ASDIRECTED [facility] Last Admin: 06/24/21 14:24 Dose: 125 mls/hr Documented by: CONRADO Metoclopramide HCl (Metoclopramide 10 Mg/2 Ml Sdv) 10 mg IV Q6H PRN PRN Reason: Nausea Last Admin: 06/24/21 12:03 Dose: 10 mg Documented by: CONRADO Naloxone HCl (Naloxone 0.4 Mg/Ml Sdv) 0.1 mg IVPUSH Q3M PRN PRN Reason: Respiratory Depression Ondansetron HCl (Ondansetron 4 Mg/2 Ml Sdv) 4 mg IVPUSH Q6H PRN PRN Reason: Nausea/Vomiting Ondansetron HCl (Ondansetron 4 Mg Tab.Dis) 4 mg PO Q4H PRN PRN Reason: Nausea/Vomiting Pantoprazole Sodium (Pantoprazole 40 Mg Vial) 40 mg IVPUSH DAILY [facility] Sodium Biphosphate/Sodium Phosphate (Sodium Phosphate,Monobasic/Sodium Phosphate,Dibasic Enema 133 Ml Bottle) 133 ml RECTAL ONETIME PRN PRN Reason: Constipation Labs: Laboratory Tests 06/24/21 06/24/21 06/24/21 Range/Units 09:13 09:13 09:13 WBC 9.4 (4.5-11.0) K/uL RBC 3.65 (3.30-5.50) M/uL Hgb 11.2 L (12.0-15.0) g/dL Hct 33.9 L (36.0-48.0) % MCV 93 (80-98) fL MCH 31 (27-31) pg MCHC 33 (32-36) % Plt Count 299 (150-400) K/uL Neut % (Auto) 71.4 H (36-66) % Lymph % (Auto) 17.7 L (24-44) % [place] % (Auto) 7.6 H (2-6) % Eos % (Auto) 3.1 (2-4) % Baso % (Auto) 0.2 (0-1) % Sodium 139 L (140-148) mmol/L Potassium 3.9 (3.6-5.2) mmol/L Chloride 104 (100-108) mmol/L Carbon Dioxide 26 (21-32) mmol/L Anion Gap 12.9 (5.0-14.0) mmol/L BUN 9 D (7-18) mg/dL Creatinine 0.7 (0.6-1.0) mg/dL Est Cr Clr Drug Dosing 87.64 mL/min Estimated GFR (MDRD) > 60 (>60) Glucose 97 (74-106) mg/dL Lactic Acid 1.2 (0.4-2.0) mmol/L Calcium 8.2 L (8.5-10.1) mg/dL Total Bilirubin 0.4 D (0.2-1.0) mg/dL AST 25 (15-37) U/L ALT 29 (12-78) U/L Alkaline Phosphatase 102 (46-116) U/L Total Protein 5.4 L (6.4-8.2) g/dL Albumin 2.9 L (3.4-5.0) g/dL Globulin 2.5 (2.3-3.5) g/dL Albumin/Globulin Ratio 1.2 (1.2-2.2) Lipase 27 L (73-393) U/L Meds: Medications Generic Name Dose Route Start Last Admin Trade Name Freq PRN Reason Stop Dose Admin Acetaminophen 650 mg 06/24/21 11:15 Acetaminophen 325 Mg Tab PO Q6H PRN Pain/Fever Cyclobenzaprine HCl 10 mg 06/24/21 14:00 06/24/21 14:21 Cyclobenzaprine 10 Mg Tab PO 10 mg TID EPHRAIM Administration Diphenhydramine HCl 25 mg 06/24/21 12:13 Diphenhydramine 50 Mg/Ml Sdv IVPUSH Q6H PRN Itching Diphenhydramine HCl 25 mg 06/24/21 12:13 Diphenhydramine 25 Mg Cap PO Q6H PRN Itching Gabapentin 1,200 mg 06/24/21 14:00 06/24/21 14:22 Gabapentin 400 Mg Cap PO 1,200 mg TID EPHRAIM Administration Hydromorphone HCl 0 mg 06/24/21 12:15 06/24/21 12:29 Hydromorphone/Normal Saline 15 Mg/30 Ml Piping Design Specialist IV 15 mg ASDIRECTED PRN Administration PAIN Protocol Dextrose/Lactated Ringer's 1,000 mls @ 125 mls/hr 06/24/21 11:15 06/24/21 14:24 Dextrose 5%-Lactated Ringers IV 125 mls/hr ASDIRECTED EPHRAIM Administration Metoclopramide HCl 10 mg 06/24/21 11:15 06/24/21 12:03 Metoclopramide 10 Mg/2 Ml Sdv IV 10 mg Q6H PRN Administration Nausea Naloxone HCl 0.1 mg 06/24/21 12:13 Naloxone 0.4 Mg/Ml Sdv IVPUSH Q3M PRN Respiratory Depression Ondansetron HCl 4 mg 06/24/21 11:15 Ondansetron 4 Mg/2 Ml Sdv IVPUSH Q6H PRN Nausea/Vomiting Ondansetron HCl 4 mg 06/24/21 11:15 Ondansetron 4 Mg Tab.Dis PO Q4H PRN Nausea/Vomiting Pantoprazole Sodium 40 mg 06/25/21 09:00 Pantoprazole 40 Mg Vial IVPUSH DAILY EPHRAIM Sodium Biphosphate/Sodium Phosphate 133 ml 06/24/21 12:30 Sodium Phosphate,Monobasic/Sodium Phosphate,Dibasic Enema 133 Ml Bottle RECTAL ONETIME PRN Constipation Discontinued Medications Generic Name Dose Route Start Last Admin Trade Name Freq PRN Reason Stop Dose Admin Hydromorphone HCl 0.5 mg 06/24/21 09:04 06/24/21 09:14 Hydromorphone 0.5 Mg/0.5 Ml Syringe IVPUSH 06/24/21 09:05 0.5 mg ONETIME ONE Administration Hydromorphone HCl 0.5 mg 06/24/21 10:11 06/24/21 10:23 Hydromorphone 0.5 Mg/0.5 Ml Syringe IVPUSH 06/24/21 10:12 0.5 mg ONETIME ONE Administration Sodium Chloride 1,000 mls @ 999 mls/hr 06/24/21 09:04 06/24/21 09:16 Normal Saline IV 06/24/21 10:04 999 mls/hr ONETIME ONE Administration Sodium Chloride 70 mls @ 3 mls/sec 06/24/21 09:51 06/24/21 09:59 Normal Saline IV 06/24/21 09:52 3 mls/sec ASDIRECTED STA Administration Multivitamins/Minerals 10 ml/ 1,013 mls @ 500 mls/hr 06/24/21 12:30 06/24/21 12:28 Thiamine HCl 200 mg/ Chromium/ IV 06/24/21 14:31 500 mls/hr Copper/Manganese/Seleni/Zn 1 ONETIME ONE Administration ml/ Lactated Ringer's Iopamidol 100 ml 06/24/21 09:51 06/24/21 09:59 Iopamidol 612 Mg/Ml 100 Ml Bottle IV 06/24/21 09:52 100 ml . DIRECTED STA Administration Ondansetron HCl 4 mg 06/24/21 09:04 06/24/21 09:14 Ondansetron 4 Mg/2 Ml Sdv IVPUSH 06/24/21 09:05 4 mg ONETIME ONE Administration - Re-Assessments/Exams Free Text/Narrative Re-Assessment/Exam: 06/24/21 09:25 An IV was started, patient was given 0.5 mg of IV Dilaudid and 4 mg of IV Zofran. Normal saline hydration was started, CBC, CMP, lactic acid and lipase obtained. Patient will need an IV enhanced CT of the abdomen and pelvis if kidney function allows. 06/24/21 09:48 Patient's symptoms were reduced by the IV medications. White count returned normal, CMP returned very reassuring and lipase was normal. Lactic acid is still pending. 06/24/21 09:48 Lactic acid is also normal at 1.2 06/24/21 10:[address] scan, awaiting results. Pain was worsening so an additional 0.5 mg of IV Dilaudid was given. 06/24/21 10:54 CT shows in a distended segment of small bowel that has been fecalized. This was discussed with Dr. Rodriguez, Kassie Clark is going to come over and visit with the patient and discuss admission. Departure - Departure Time of Disposition: 11:57 Disposition: Admitted As Inpatient 66 Clinical Impression: Small bowel obstruction Abdominal pain Qualifiers: Abdominal location: upper abdomen, unspecified Qualified Code(s): R10.10 - Upper abdominal pain, unspecified - Discharge Information Sepsis Event Note (ED) - Evaluation Sepsis Screening Result: No Definite Risk - Focused Exam Vital Signs: Vital Signs Temp Pulse Resp BP Pulse Ox 06/24/21 10:24 75 114/73 99 06/24/21 08:52 97.9 F 91 16 114/81 97
[2021-06-24] MEDS ORDERED: Iopamidol 612 MG/ML 100 ML Bottle IV STA (09:51)
--- NOTE | 2021-06-24 10:42 | CT ---
Abdomen Pelvis w Cont CLINICAL HISTORY: Abdominal pain, possible obstruction COMPARISON: 02/27/2021. TECHNIQUE: Transverse scans were obtained from the base of the lungs to the pubic symphysis following oral contrast and IV infusion of contrast.Auto dosage reduction and iterative reconstructiontechniques employed. FINDINGS: Patient has had previous bariatric surgery. There is a long segment of distended small bowel in the left abdomen from the left upper quadrant to the infraumbilical region near the anastomotic site. There is fecalization of small bowel content. The lung bases are clear. The liver shows some intrahepatic biliary dilatation. Common hepatic duct measures approximately 9 mm. The distal common bile duct has a more normal caliber. The gallbladder is elongated.. Appearance is similar to prior study. There is no gallbladder wall thickening.. The spleen has a normal size and shape. The pancreas shows some ductal dilatation. The adrenal glands are not well seen on either side. No mass is identified . The kidneys show no mass, stones or hydronephrosis. The ureters have a normal course and caliber. The bladder has a normal contour. There is some stranding in the mesenteric fat in the right lower quadrant to the near the internal ring of the inguinal canal. This is nonspecific. The aorta has a normal contour. There is no suspicious retroperitoneal adenopathy. IMPRESSION: Long vertical segment of distended small bowel with fecalisation of small bowel content. This appears to be at or near the anastomotic site in the low abdomen. Mild generalized biliary dilatation similar to prior study
[2021-06-24] MEDS ORDERED: Ondansetron 4 MG/2 ML SDV IVPUSH PRN (11:15)
[2021-06-24] MEDS ORDERED: Acetaminophen 325 MG Tab PO PRN (11:15)
[2021-06-24] MEDS ORDERED: Ondansetron 4 MG Tab.DIS PO PRN (11:15)
[2021-06-24] MEDS ORDERED: Metoclopramide 10 MG/2 ML SDV IV PRN (11:15)
[2021-06-24] MEDS ORDERED: diphenhydrAMINE 25 MG Cap PO PRN (12:13)
[2021-06-24] MEDS ORDERED: diphenhydrAMINE 50 MG/ML SDV IVPUSH PRN (12:13)
[2021-06-24] MEDS ORDERED: Naloxone 0.4 MG/ML SDV IVPUSH PRN (12:13)
[2021-06-24] MEDS ORDERED: HYDROmorphone/Normal Saline 15 MG/30 ML PCA IV PRN (12:15)
[2021-06-24] MEDS ORDERED: Sodium Phosphate,Monobasic/Sodium Phosphate,Dibasic Enema 133 ML Bottle RECTAL PRN (12:30)
[2021-06-24] MEDS ORDERED: MVI, Adult with Vitamin K 10 ML, Thiamine 200 MG, Chromium/Copper/Mang/Selen/Zn 1 ML in... IV ONE ×4 (12:30)
[2021-06-24] MEDS: Cyclobenzaprine 10 MG Tab PO SCH ×2 (14:21→20:05)
[2021-06-24] MEDS: Gabapentin 400 MG Cap PO SCH ×2 (14:22→20:05)
[2021-06-24] MEDS: Dextrose 5%-Lactated Ringers 1,000 ML IV SCH (14:24)
--- NOTE | 2021-06-24 15:20 | PCM.HP.2 ---
H&P History of Present Illness - General Date of Service: 06/24/21 Admit Problem/Dx: Admission Diagnosis/Problem Admission Diagnosis/Problem Partial small bowel obstruction Source of Information: Patient History Limitations: Reports: No Limitations - History of Present Illness Initial Comments - Free Text/Narative: Vanessa states that she developed intermittent mid abdominal pain associated with nausea and constipation about 2 weeks ago. States today the pain got worse and she can't drink water without throwing up. Last BM was 2 days ago. Eating usually does not make any difference with the pain. Onset of Symptoms: Reports: Gradual Abdomen Pain Score (Numeric/FACES): 5 - Related Data Allergies/Adverse Reactions: Allergies Allergy/AdvReac Type Severity Reaction Status Date / Time No Known Allergies Allergy Verified 06/24/21 12:05 Home Medications: Home Meds Cyclobenzaprine [Flexeril] 10 mg PO TID 01/19/15 [History] Gabapentin [Neurontin] 1,200 mg PO TID 01/19/15 [History] Cholecalciferol (Vitamin D3) [Vitamin D3] 1,000 unit PO DAILY 01/23/15 [History] Cyanocobalamin (Vitamin B-12) [Vitamin B-12] 1,000 mcg PO DAILY 01/23/15 [History] Ped Multivit 43/Iron Fumarate [Flintstones Complete Chew Tab] 1 tab PO BID 01/23/15 [History] Vitamin B Complex 1 each PO DAILY 01/23/15 [History] polyethylene glycoL 3350 [MiraLAX] 34 gm PO DAILY #60 packet 02/22/21 [Rx] Past Medical History HEENT History: Reports: None Respiratory History: Reports: Sleep Apnea Gastrointestinal History: Reports: Bowel Obstruction 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: Musculoskeletal History: Reports: Back Pain, Chronic Neurological History: Reports: Migraines Psychiatric History: Reports: Anxiety Endocrine/Metabolic History: Reports: Obesity/BMI 30+ - Infectious Disease History Infectious Disease History: Reports: Chicken Pox - Past Surgical History HEENT Surgical History: Reports: Tonsillectomy GI Surgical History: Reports: Appendectomy, Bariatric Procedure, Esophageal Dilatation, Hernia, Abdominal, Lysis of Adhesions Neurological Surgical History: Reports: Spinal Fusion Other Neurological Surgeries/Procedures: L4-S1 Other Musculoskeletal Surgeries/Procedures:: back surgery Social & Family History - Family History Cardiac: Reports: High Cholesterol, Hypertension Neurological: Reports: CVA - Tobacco Use Tobacco Use Status *Q: Current Every Day Tobacco User Years of Tobacco use: 20 Packs/Tins Daily: 0.5 Used Tobacco, but Quit: No Second Hand Smoke Exposure: No - Caffeine Use Caffeine Use: Reports: Coffee, Tea Other Caffeine Use: 3 cans a day soda, 2 cups of coffee a day - Recreational Drug Use Recreational Drug Use: No - Living Situation & Occupation Living situation: Reports: Single, Alone 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 lives alone in [place], [place]. has two adult children.) H&P Review of Systems - Review of Systems: Review Of Systems: See Below General: Reports: Fatigue HEENT: Reports: No Symptoms Gastrointestinal: Reports: Abdominal Pain, Constipation, Vomiting Genitourinary: Reports: No Symptoms Musculoskeletal: Reports: No Symptoms Skin: Reports: No Symptoms Psychiatric: Reports: No Symptoms Neurological: Reports: No Symptoms Hematologic/Lymphatic: Reports: No Symptoms Immunologic: Reports: No Symptoms Exam - Exam Exam: See Below - Vital Signs Vital Signs: Last Vital Signs Temp 93.7 F L 06/24/21 14:25 Pulse 73 06/24/21 14:25 Resp 16 06/24/21 14:25 BP 102/71 06/24/21 14:25 Pulse Ox 98 06/24/21 14:25 Weight: 145 lb - Exam General: Alert, Oriented, Cooperative, Mild Distress HEENT: PERRLA, Conjunctiva Clear Neck: Supple, Trachea Midline Lungs: Clear to Auscultation, Rub Cardiovascular: Regular Rate, Regular Rhythm GI/Abdominal Exam: Soft, No Distention, Tender (in the maru umbilical area) (Female) Exam: Deferred Rectal (Female) Exam: Deferred Back Exam: Normal Inspection, Full Range of Motion Extremities: Normal Inspection, Normal Range of Motion, Non-Tender, No Pedal Edema Skin: Warm, Dry, Intact Neurological: Cranial Nerves Intact, Reflexes Equal Bilateral Neuro Extensive - Mental Status: Alert, Oriented x3, Normal Mood/Affect Neuro Extensive - Motor, Sensory, Reflexes: CN II-XII Intact Psychiatric: Alert, Normal Affect, Normal Mood - Patient Data Lab Results Last 24 hrs: Laboratory Results - last 24 hr 06/24/21 06/24/21 06/24/21 Range/Units 09:13 09:13 09:13 WBC 9.4 (4.5-11.0) K/uL RBC 3.65 (3.30-5.50) M/uL Hgb 11.2 L (12.0-15.0) g/dL Hct 33.9 L (36.0-48.0) % MCV 93 (80-98) fL MCH 31 (27-31) pg MCHC 33 (32-36) % Plt Count 299 (150-400) K/uL Neut % (Auto) 71.4 H (36-66) % Lymph % (Auto) 17.7 L (24-44) % [place] % (Auto) 7.6 H (2-6) % Eos % (Auto) 3.1 (2-4) % Baso % (Auto) 0.2 (0-1) % Sodium 139 L (140-148) mmol/L Potassium 3.9 (3.6-5.2) mmol/L Chloride 104 (100-108) mmol/L Carbon Dioxide 26 (21-32) mmol/L Anion Gap 12.9 (5.0-14.0) mmol/L BUN 9 D (7-18) mg/dL Creatinine 0.7 (0.6-1.0) mg/dL Est Cr Clr Drug Dosing 87.64 mL/min Estimated GFR (MDRD) > 60 (>60) Glucose 97 (74-106) mg/dL Lactic Acid 1.2 (0.4-2.0) mmol/L Calcium 8.2 L (8.5-10.1) mg/dL Total Bilirubin 0.4 D (0.2-1.0) mg/dL AST 25 (15-37) U/L ALT 29 (12-78) U/L Alkaline Phosphatase 102 (46-116) U/L Total Protein 5.4 L (6.4-8.2) g/dL Albumin 2.9 L (3.4-5.0) g/dL Globulin 2.5 (2.3-3.5) g/dL Albumin/Globulin Ratio 1.2 (1.2-2.2) Lipase 27 L (73-393) U/L Result Diagrams: 06/24/21 09:13 06/24/21 09:13 Sepsis Event Note - Evaluation Sepsis Screening Result: No Definite Risk - Focused Exam Vital Signs: Vital Signs Temp Pulse Resp BP Pulse Ox 06/24/21 14:25 93.7 F L 73 16 102/71 98 06/24/21 12:29 98 06/24/21 11:53 93.9 F L 80 18 114/74 100 06/24/21 10:24 75 114/73 99 06/24/21 08:52 97.9 F 91 16 114/81 97 Problem List Initiated/Reviewed/Updated: Yes Orders Last 24hrs: Active Orders 24 hr Category Date Time Status Patient Status [ADT] Routine ADT 06/24/21 11:15 Active Activity as Tolerated [RC] .Routine Care 06/24/21 11:15 Active Ambulate [RC] QID Care 06/24/21 11:15 Active Antiembolic Devices [RC] .Routine Care 06/24/21 11:15 Active Communication Order [RC] Per Unit Routine Care 06/24/21 12:14 Active May Shower [RC] ASDIRECTED Care 06/24/21 11:15 Active Notify Provider Vital Signs [RC] ASDIRECTED Care 06/24/21 11:15 Active BAKING ASSISTANT Record [RC] Q4H Care 06/24/21 12:14 Active Vital Signs [RC] Q4H Care 06/24/21 11:15 Active Nothing Per Oral Diet [DIET] Diet 06/24/21 Lunch Active Abdomen 2V AP Flat Upright [CR] DAILY Exams 06/25/21 04:00 Ordered Abdomen 2V AP Flat Upright [CR] DAILY Exams 06/26/21 04:00 Ordered Abdomen 2V AP Flat Upright [CR] DAILY Exams 06/27/21 04:00 Ordered Abdomen 2V AP Flat Upright [CR] DAILY Exams 06/28/21 04:00 Ordered COMPREHENSIVE METABOLIC PN,CMP [CHEM] Timed Lab 06/25/21 04:00 Ordered CORONAVIRUS COVID-19 MARCO [MOLEC] Routine Lab 06/24/21 15:09 Ordered FERRITIN [CHEM] Timed Lab 06/25/21 04:00 Ordered MAGNESIUM [CHEM] Timed Lab 06/25/21 04:00 Ordered Acetaminophen [TylenoL] Med 06/24/21 11:15 Active 650 mg PO Q6H PRN Cyclobenzaprine [Flexeril] Med 06/24/21 14:00 Active 10 mg PO TID Dextrose 5%-Lactated Ringers 1,000 ml Med 06/24/21 11:15 Active IV ASDIRECTED Gabapentin [Neurontin] Med 06/24/21 14:00 Active 1,200 mg PO TID HYDROmorphone/Normal Saline [Dilaudid BAKING ASSISTANT 15 MG in NS Med 06/24/21 12:15 Active 30 ML] 0 mg IV ASDIRECTED PRN Metoclopramide [Reglan] Med 06/24/21 11:15 Active 10 mg IV Q6H PRN Na Phos,M-B/Na Phos,DI-B [Fleet Enema] Med 06/24/21 12:30 Active 133 ml RECTAL ONETIME PRN Naloxone [Narcan] Med 06/24/21 12:13 Active 0.1 mg IVPUSH Q3M PRN Ondansetron [Zofran ODT] Med 06/24/21 11:15 Active 4 mg PO Q4H PRN Ondansetron [Zofran] Med 06/24/21 11:15 Active 4 mg IVPUSH Q6H PRN Pantoprazole [ProTONIX IV] Med 06/25/21 09:00 Active 40 mg IVPUSH DAILY diphenhydrAMINE [Benadryl] Med 06/24/21 12:13 Active 25 mg IVPUSH Q6H PRN diphenhydrAMINE [Benadryl] Med 06/24/21 12:13 Active 25 mg PO Q6H PRN Pulse Oximetry Continuous Monitoring [OM.PC] Routine Oth 06/24/21 12:14 Ordered Sequential Compression Device [OM.PC] Routine Oth 06/24/21 11:15 Ordered Resuscitation Status Routine Resus Stat 06/24/21 11:15 Ordered Medication Orders Acetaminophen (Acetaminophen 325 Mg Tab) 650 mg PO Q6H PRN PRN Reason: Pain/Fever Cyclobenzaprine HCl (Cyclobenzaprine 10 Mg Tab) 10 mg PO TID [facility] Last Admin: 06/24/21 14:21 Dose: 10 mg Documented by: CONRADO Diphenhydramine HCl (Diphenhydramine 50 Mg/Ml Sdv) 25 mg IVPUSH Q6H PRN PRN Reason: Itching Diphenhydramine HCl (Diphenhydramine 25 Mg Cap) 25 mg PO Q6H PRN PRN Reason: Itching Gabapentin (Gabapentin 400 Mg Cap) 1,200 mg PO TID [facility] Last Admin: 06/24/21 14:22 Dose: 1,200 mg Documented by: CONRADO Hydromorphone HCl (Hydromorphone/Normal Saline 15 Mg/30 Ml Sleeping Bag Filler) 0 mg IV ASDI RECTED PRN; Protocol PRN Reason: PAIN Last Admin: 06/24/21 12:29 Dose: 15 mg Documented by: CONRADO Dextrose/Lactated Ringer's (Dextrose 5%-Lactated Ringers) 1,000 mls @ 125 mls/hr IV ASDIRECTED [facility] Last Admin: 06/24/21 14:24 Dose: 125 mls/hr Documented by: CONRADO Metoclopramide HCl (Metoclopramide 10 Mg/2 Ml Sdv) 10 mg IV Q6H PRN PRN Reason: Nausea Last Admin: 06/24/21 12:03 Dose: 10 mg Documented by: CONRADO Naloxone HCl (Naloxone 0.4 Mg/Ml Sdv) 0.1 mg IVPUSH Q3M PRN PRN Reason: Respiratory Depression Ondansetron HCl (Ondansetron 4 Mg/2 Ml Sdv) 4 mg IVPUSH Q6H PRN PRN Reason: Nausea/Vomiting Ondansetron HCl (Ondansetron 4 Mg Tab.Dis) 4 mg PO Q4H PRN PRN Reason: Nausea/Vomiting Pantoprazole Sodium (Pantoprazole 40 Mg Vial) 40 mg IVPUSH DAILY [facility] Sodium Biphosphate/Sodium Phosphate (Sodium Phosphate,Monobasic/Sodium Phosphate,Dibasic Enema 133 Ml Bottle) 133 ml RECTAL ONETIME PRN PRN Reason: Constipation Assessment/Plan Comment:: Assessment: Partial Small Bowel Obstruction Plan: See copy of orders If pain persists will schedule surgery Plan of hospitalization is 3 nights and 4 days Kassie Jett 06/24/2021 - Mortality Measure Prognosis:: Good
[2021-06-25] MEDS: Dextrose 5%-Lactated Ringers 1,000 ML IV SCH ×3 (05:49→23:21)
[2021-06-25] MEDS: Pantoprazole 40 MG Vial IVPUSH SCH (08:22)
--- NOTE | 2021-06-25 09:15 | PN ---
DATE OF SERVICE: 06/25/2021 SUBJECTIVE: aVnessa reports her pain is about the same. She has been up ambulating, has not slept much during the night. Abdominal flat and upright x-rays were obtained, and Ashvin Rodriguez MD, looked at the x-ray. Vital signs otherwise have been stable. REVIEW OF SYSTEMS: The remainder of the review of systems is negative for any pertinent positives and negatives. OBJECTIVE: GENERAL: Vanessa White is a pleasant 45-year-old female. She is alert, orientated, and in no acute distress. VITAL SIGNS: TPR 96.3, 73, and 16 and blood pressure 106/64. HEENT: Negative. NECK: Supple. HEART: Regular rate and rhythm. LUNGS: Clear. ABDOMEN: Soft, nondistended, and very minimally tender in all 4 quadrants. EXTREMITIES: Without peripheral edema. ASSESSMENT: Partial small-bowel obstruction. PLAN: Upper GI with small-bowel follow-through with water-soluble contrast, urgent, with Radiology present; call Ashvin Rodriguez MD, with the results. We will evaluate p.r.n. or in the a.m. Kassie Clark PA-C /[phone]
[2021-06-25] MEDS ORDERED: Iopamidol 612 MG/ML 50 ML SDV PO PRN (09:17)
--- NOTE | 2021-06-25 10:24 | CR ---
Abdomen 2V AP Flat Upright CLINICAL HISTORY: Partial SBO FINDINGS: Patient has had previous bariatric surgery. Small intestinal configuration is nonacute. There is gas and feces throughout the colon. No free air is seen IMPRESSION: Previous bariatric surgery Nonspecific intestinal gas pattern
[2021-06-25] MEDS: Cyclobenzaprine 10 MG Tab PO SCH ×3 (12:36→20:14)
[2021-06-25] MEDS: Gabapentin 400 MG Cap PO SCH ×3 (12:36→20:14)
--- NOTE | 2021-06-25 14:15 | CR ---
UGI w Small Bowel wo Air CLINICAL HISTORY: Previous bariatric surgery, partial small bowel obstruction FINDINGS: Patient swallowed water-soluble contrast without difficulty. The esophagus had a normal contour. Patient has had previous gastric bypass procedure. Contrast quickly went into the degenerative which was mildly dilated. There is some mild mucosal edema. There is a focal narrowing seen in the left lower quadrant. This was the moderately dilated loop on CT which contained fecalized small bowel content. Sequential flat plates showed slow progression through the more distal small bowel and eventually to: With complete clearing of the proximal small bowel segment IMPRESSION: Status post bariatric surgery with Chung-en-Y Previously seen obstructed segment of proximal jejunum on CT has cleared. There is some persistent focal narrowing in the left lower quadrant. There is mild segmental mucosal edema.
[2021-06-26 07:18] VITALS: BP 110/69; PULSE 82
--- NOTE | 2021-06-26 08:46 | DISCH ---
ADMISSION DIAGNOSES: Partial small bowel obstruction, status post Chung-en-Y gastric bypass surgery, unspecified surgical malabsorption, B12 deficiency, vitamin D deficiency, chronic low back pain, current everyday smoker. DISCHARGE DIAGNOSIS: Resolution of partial small bowel obstruction. HISTORY: Vanessa White is a pleasant 45-year-old female who has had Chung-en-Y gastric bypass surgery several years ago. She has had bowel obstructions in the past. She presented to the emergency department, [facility] for evaluation of abdominal pain. A CT scan was obtained. The impression showed a long vertical segment of distended small bowel with fecalization of small bowel content. This appears to be at or near the anatomic site in the lower abdomen. Vanessa was hospitalized on 06/24/2021 and she was made n.p.o. with ice chips only and was given pain medication on 06/25/2021. Her x-ray flat and upright did show some improvement. She had an upper GI with small-bowel follow-through, which showed improvement in that area of the bowel with fecalization. On 06/26/2021, after a trial of clear liquid diet and full liquid diet, she was able to be discharged to home with no complications. PHYSICAL EXAMINATION: GENERAL: Vanessa White is a pleasant 45-year-old female. VITAL SIGNS: Height 5 feet 4 inches, weight is 145 pounds. BMI is 24.8. TPR is 97, 82, 16. Blood pressure 110/69. HEENT: Negative. NECK: Supple. HEART: Regular rate and rhythm. LUNGS: Clear. ABDOMEN: Soft, nontender. EXTREMITIES: Without peripheral edema. NEUROLOGIC: Intact. PSYCHIATRIC: Mood and affect appropriate. DISPOSITION: Discharged to home. CONDITION: Stable and improving. FOLLOWUP: Appointment with Kassie Clark PA-C on 07/10/2021 at 1 p.m. MEDICATIONS: To resume home medications. DIET: Full liquid diet for 2 weeks, then GI soft, low-residue diet fdc. 65 g of protein in 64 ounces of fluid. ACTIVITY: As tolerated. Driving: May drive today. Shower: May shower. Notify provider if any fever, increased pain, nausea, or vomiting. /[phone]
[2021-06-26] MEDS: Gabapentin 400 MG Cap PO SCH (09:01)
[2021-06-26] MEDS: Cyclobenzaprine 10 MG Tab PO SCH (09:01)
[2021-06-26] MEDS: Pantoprazole 40 MG Vial IVPUSH SCH (09:01)
--- NOTE | 2021-06-26 09:09 | CR ---
Abdomen 2V AP Flat Upright CLINICAL HISTORY: Partial small bowel obstruction FINDINGS: There is water-soluble contrast in the left and rectosigmoid colon from prior day's upper GI. Intestinal gas pattern is nonacute. IMPRESSION: Further advancement of contrast through the colon Nonacute gas pattern
== END 2021-06-26 09:13 | disposition home or self-care (01) | DRG 389 ==
LOC: JP.ED 08:40 → JP.MS 11:15
PROVIDERS: ADMIT Physician Assistant Medical; ATTEND Surgery
DX: K56.600 Partial intestinal obstruction, unspecified as to cause (principal); K91.2 Postsurgical malabsorption, not elsewhere classified; E55.9 Vitamin D deficiency, unspecified; E53.8 Deficiency of other specified B group vitamins; M54.5 Low back pain; G89.29 Other chronic pain; K56.41 Fecal impaction; Z20.822 Contact with and (suspected) exposure to COVID-19; F17.200 Nicotine dependence, unspecified, uncomplicated; F41.9 Anxiety disorder, unspecified; G47.30 Sleep apnea, unspecified; E66.9 Obesity, unspecified; Z98.84 Bariatric surgery status; Z79.899 Other long term (current) drug therapy; Z90.49 Acquired absence of other specified parts of digestive tract; Z98.890 Other specified postprocedural states; Z68.24 Body mass index [BMI] 24.0-24.9, adult
CPT/HCPCS: 36415; 74019; 74019-26; 74177; 74177-26; 74240; 74240-26; 74248; 80053; 82728; 83605; 83690; 83735; 85025; 94762; 96374; 96375; 96376; 99285-25; A9270-GY; C9113; J1170; J2405; J2765; J3411; J7030; J7120; J7121; Q9967; U0002

== ENCOUNTER 2021-12-21 17:02 | Emergency (ER) | payer MEDICAID, OTHER ==
[2021-12-21] MEDS ORDERED: Sodium Chloride 0.9% 10 ML Syringe FLUSH PRN (18:09)
[2021-12-21] MEDS ORDERED: fentaNYL 100 MCG/2 ML SDV IVPUSH ONE (18:10)
[2021-12-21] MEDS ORDERED: Ondansetron 4 MG/2 ML SDV IVPUSH ONE (18:10)
[2021-12-21] MEDS ORDERED: Lactated Ringers 1,000 ML IV SCH (18:15)
[2021-12-21] MEDS ORDERED: Sodium Chloride 0.9% 10 ML Syringe FLUSH ONE (18:16)
[2021-12-21] MEDS ORDERED: Sodium Chloride 0.9% 50 ML IV SCH (18:30)
[2021-12-21] MEDS ORDERED: Iopamidol 612 MG/ML 100 ML Bottle IV SCH (18:30)
[2021-12-21] MEDS ORDERED: HYDROmorphone 0.5 MG/0.5 ML Syringe IVPUSH ONE (19:18)
[2021-12-21 19:58] VITALS: BP 118/75; PULSE 68
== END 2021-12-21 23:10 | disposition home or self-care (01) ==
LOC: JP.ED 17:02
DX: K59.09 Other constipation (principal); E66.9 Obesity, unspecified; Z68.26 Body mass index [BMI] 26.0-26.9, adult; Z72.0 Tobacco use
CPT/HCPCS: 36415; 74177; 80053; 81001; 83605; 83690; 84703; 85025; 96374; 96375; 99284; J1170; J2405; J3010; J7120; Q9967